=== PATIENT | female | born 1940 | race Caucasian/White ===

== ENCOUNTER 2017-08-10 12:08 | Inpatient (IN) | payer MEDICARE ==
[~2017-08-10] VITALS: Ht 152.4 cm; Wt 68.9 kg
[~2017-08-10 12:08] MED LIST: ACCUPRIL10 MG PO; ADULT LOW DOSE81 MG PO; LOPRESSOR25 MG PO; NICODERM CQ1 EAC1 TOP; OMEPRAZOLE20 MG PO; PRAVACHOL40 MG PO; ZYLOPRIM300 MG PO
[2017-08-10] MEDS ORDERED: ALBUTEROL/IPRATROPIUM 3 ML NEB ONE (15:08)
[2017-08-10 15:20] VITALS: BP 174/93
[2017-08-10 15:25] VITALS: BP 174/93
[2017-08-10 15:39] LABS: BASOPHILS % 0.1 % (0.0-1.0); HEMATOCRIT 37.3 % (34.2-44.1); HEMOGLOBIN 13.4 g/dL (12.0-16.0); LYMPHOCYTES # (AUTO) 0.5 (1.0-3.2); LYMPHOCYTES % 4.9 % (18.0-39.1); MEAN CORPUSCULAR HEMOGLOBIN 33.2 pg (28-32); MEAN CORPUSCULAR HGB CONC 35.9 g/dL (31-35); MEAN CORPUSCULAR VOLUME 92.3 fL (81-99); MONOCYTES # (AUTO) 1.2 (0.2-0.8); MONOCYTES % 12.7 % (4.4-11.3); NEUTROPHILS # (AUTO) 7.9 (2.1-6.9); PLATELET COUNT 298 x10e3/uL (140-360); RED BLOOD COUNT 4.04 x10e6/uL (3.6-5.1); RED CELL DISTRIBUTION WIDTH 11.6 % (11.7-14.4)
[2017-08-10 15:56] LABS: ALANINE AMINOTRANSFERASE 30 IU/L (0-55); ALBUMIN/GLOBULIN RATIO 0.7 (0.8-2.0); ALKALINE PHOSPHATASE 117 IU/L (40-150); ANION GAP 16.1 mmol/L (8-16); BLOOD UREA NITROGEN 7 mg/dL (7-26); BUN/CREATININE RATIO 10 (6-25); CALCIUM 10.2 mg/dL (8.4-10.2); CARBON DIOXIDE 24 mmol/L (22-29); CHLORIDE 87 mmol/L (98-107); CREATININE, SERUM 0.69 mg/dL (0.57-1.11); EST GLOMERULAR FILTRATION RATE > 60 ML/MIN (60-); GLUCOSE 123 mg/dL (74-118); POTASSIUM 4.1 mmol/L (3.5-5.1); SODIUM 123 mmol/L (136-145)
[2017-08-10] MEDS ORDERED: METOPROLOL TART50 MG PO (16:21)
[2017-08-10] MEDS ORDERED: CALTRATE-600 W1 EACH (16:21)
[2017-08-10] MEDS ORDERED: VITAMIN B-121000 MCG PO (16:21)
[2017-08-10] MEDS ORDERED: FISH OIL 1,0001 EAC2 (16:21)
[2017-08-10] MEDS ORDERED: MULTI-VITAMIN1 EACH (16:21)
[2017-08-10 17:01] LABS: BAND NEUTROPHILS % (MANUAL) 1 %; LYMPHOCYTES % (MANUAL) 2 % (19-48); MONOCYTES % (MANUAL) 12 % (3.4-9.0); NEUTROPHILS % (MANUAL) 83 % (40-74); PLATELET ESTIMATE ADEQUATE; PLATELET MORPHOLOGY COMMENT NORMAL; RBC MORPHOLOGY COMMENT NORMAL; TOXIC GRANULATION SLIGHT
--- NOTE | 2017-08-10 17:12 | Diagnostic Imaging Report ---
PROCEDURE: Frontal and lateral views of the chest. COMPARISON: Patients [facility], DX, CHEST SINGLE (PORTABLE), 12/31/2012, 9:32. INDICATIONS: PNEUMONIA/HYPOXIA FINDINGS: Lines/tubes: None. Lungs: The lungs are mildly hyperinflated. Diffuse coarsening of the pulmonary interstitium particularly in the lower lobes. Reticulonodular densities are predominantly in the lower lobes, right greater than left may reflect bronchopneumonia. Bilateral perihilar compartment with secondary mild prominence of the right hilum during Pleura: There is no pleural effusion or pneumothorax. Heart and mediastinum: The heart and the mediastinum are normal. Ossifications of the aortic arch. Bones: No acute bony abnormality. IMPRESSION: 1. Findings suggestive of bilateral bronchopneumonia. Recommend followup chest x-ray in 6 weeks after treatment to document resolution. Daniel Black M.D. Dictated by: Daniel Black M.D. on 08/10/2017 at 17:16 Electronically approved by: Daniel Black M.D. on 08/10/2017 at 17:16
[2017-08-10] MEDS: AZITHROMYCIN 500MG/NS 250 ML 250 ML IV SCH (18:13)
[2017-08-10] MEDS: CEFTRIAXONE SOD 1 GM VIAL IV SCH (18:13)
--- NOTE | 2017-08-10 18:48 | History and Physical ---
The patient comes in with shortness of breath and also breathing difficulties. HISTORY OF PRESENT ILLNESS: Ms. Erick Parkinson is a 76-year-old lady with a history of hypertension who was in her usual state of health until about 4 days prior to admission when the patient started to have cough and congestion. She did not do much about it. She did take [id number] medications, but did not help this morning. The patient was feeling short of breath and took her to the clinic where she was found to have hypoxia of 92% on room air, very short of breath, and was found to have bilateral rhonchi, suspected pneumonia and sent to the hospital for admission for pneumonia, hypoxia. The patient's chest x-ray was done in the hospital and confirmed pneumonia. The patient is admitted for the same. PAST MEDICAL HISTORY: History of hypertension, history of vitamin D deficiency, vitamin B12 deficiency and history of coronary artery disease. HOME MEDICATIONS: Aspirin 81 mg, 1000 mg daily, metoprolol tartrate 50 mg daily, 10 mg nightly. PAST SURGICAL HISTORY: Hysterectomy. SOCIAL HISTORY: No ETOH, no IV drug abuse. REVIEW OF SYSTEMS: No nausea, vomiting, diarrhea, no constipation, no rectal bleeding, hematochezia, no hematemesis. Positive for shortness of breath on rest and on exertion. PHYSICAL EXAMINATION GENERAL: The patient is alert and oriented x3. VITAL SIGNS: Temperature 95.9, pulse 90, respirations 20, pulse oximetry 100%, O2 at 2 liters. HEENT: Normocephalic, atraumatic. Pupils react to light and accommodation. CVS: S1 and S2 normal. Regular rate and rhythm. LUNGS: Rhonchi bilaterally. ABDOMEN: Nontender, nondistended. EXTREMITIES: Trace edema. IMAGING: As mentioned above, did show chest with bilateral bronchial pneumonia. LABORATORY DATA: White count 9.4, neutrophil count ____ 81. Platelet count 298,000. Chemistries: Showed sodium 123, potassium 4.1, carbon dioxide of 24, anion gap of 16.1. ASSESSMENT: 1. Bronchopneumonia. 2. Hyponatremia. 3. Dehydration. 4. History of hypertension. 5. Hypoxia. PLAN: Give her sodium chloride 70 mL gently. Increase her sodium for hyponatremia, and also give her IV Rocephin and Zithromax. The patient is going to be on Albuterol and Atrovent. Treatment q.6 h. and also put her on Lovenox for DVT prophylaxis. She is on O2 at 2 liters for hypoxia. Further recommendations depending on hospital course. Will continue monitoring her numbers and also her sodium as we go along. Job#: [id number] GH
[2017-08-10] MEDS: SODIUM CHLORIDE 0.9% 1000ML 1,000 ML IV SCH (18:55)
[2017-08-10] MEDS: CLONIDINE HCL 0.1 MG TAB PO PRN (18:58)
[2017-08-10] MEDS: ALBUTEROL/IPRATROPIUM 3 ML NEB NEB SCH (19:15)
[2017-08-10 20:00] VITALS: BP 175/96
[2017-08-10] MEDS ORDERED: QUINAPRIL HCL 10 MG TAB PO SCH ×2 (21:00)
[2017-08-10] MEDS: QUINAPRIL HCL 20 MG TAB PO SCH (22:04)
[2017-08-10] MEDS: ASPIRIN 81 MG ENTERIC COATED PO SCH (22:04)
[2017-08-11] VITALS (7 sets, daily range): BP systolic 123–166; BP diastolic 72–76
[2017-08-11] MEDS: ALBUTEROL/IPRATROPIUM 3 ML NEB NEB SCH ×4 (01:00→18:45)
[2017-08-11] MEDS: CLONIDINE HCL 0.1 MG TAB PO PRN (01:27)
[2017-08-11] MEDS: CEFTRIAXONE SOD 1 GM VIAL IV SCH ×2 (05:36→16:12)
[2017-08-11 06:16] LABS: BASOPHILS # (AUTO) 0.1 (0.0-0.1); BASOPHILS % 0.8 % (0.0-1.0); EOSINOPHILS % 0.2 % (0.0-6.0); HEMATOCRIT 30.3 % (34.2-44.1); HEMOGLOBIN 10.6 g/dL (12.0-16.0); LYMPHOCYTES # (AUTO) 0.5 (1.0-3.2); LYMPHOCYTES % 5.2 % (18.0-39.1); MEAN CORPUSCULAR HEMOGLOBIN 33.1 pg (28-32); MEAN CORPUSCULAR VOLUME 94.7 fL (81-99); MONOCYTES # (AUTO) 1.1 (0.2-0.8); NEUTROPHILS # (AUTO) 7.4 (2.1-6.9); NEUTROPHILS % 80.7 % (38.7-80.0); PLATELET COUNT 265 x10e3/uL (140-360); RED CELL DISTRIBUTION WIDTH 11.7 % (11.7-14.4)
[2017-08-11 06:43] LABS: ANION GAP 14.8 mmol/L (8-16); BLOOD UREA NITROGEN 7 mg/dL (7-26); BUN/CREATININE RATIO 11 (6-25); CALCIUM 9.1 mg/dL (8.4-10.2); CARBON DIOXIDE 23 mmol/L (22-29); CHLORIDE 88 mmol/L (98-107); CREATININE, SERUM 0.63 mg/dL (0.57-1.11); EST GLOMERULAR FILTRATION RATE > 60 ML/MIN (60-); GLUCOSE 101 mg/dL (74-118); POTASSIUM 3.8 mmol/L (3.5-5.1); SODIUM 122 mmol/L (136-145)
[2017-08-11 07:34] LABS: BAND NEUTROPHILS % (MANUAL) 7 %; LYMPHOCYTES % (MANUAL) 10 % (19-48); METAMYELOCYTES % (MANUAL) 1 % (0-0); MONOCYTES % (MANUAL) 11 % (3.4-9.0); MYELOCYTES % (MANUAL) 1 % (0-0); NEUTROPHILS % (MANUAL) 65 % (40-74)
[2017-08-11 07:35] LABS: ANISOCYTOSIS SLIGHT; HYPOCHROMASIA SLIGHT; PLATELET ESTIMATE ADEQUATE; PLATELET MORPHOLOGY COMMENT FEW LARGE; POIKILOCYTOSIS SLIGHT; RBC MORPHOLOGY COMMENT NORMAL
[2017-08-11] MEDS: MULTIVITAMINS/MINERALS TAB PO SCH (09:21)
[2017-08-11] MEDS: CYANOCOBALAMIN 1,000 MCG TAB PO SCH (09:21)
[2017-08-11] MEDS: METOPROLOL TARTRATE 50 MG TAB PO SCH (09:28)
[2017-08-11] MEDS: SODIUM CHLORIDE 1 GM TAB PO SCH ×2 (11:57→21:00)
[2017-08-11 12:05] LABS: THYROID STIMULATING HORMONE 0.72 uIU/mL (0.350-4.940)
--- NOTE | 2017-08-11 14:52 | Consultation ---
DATE OF CONSULTATION: August 11, 2017 HISTORY OF PRESENT ILLNESS: This is a pleasant 77-year-old female with prior history of skin cancer, coronary artery disease, hypertension, vitamin D deficiency, presented with a few days' history of cough, greenish colored phlegm production. She has been diagnosed with pneumonia. Renal consult for hyponatremia. Serum sodium 122, potassium 3.8, creatinine 0.6. White count 9.1, hemoglobin 10.6. She is awake, alert. She is celebrating her birthday as well as anniversary today. by bedside. She feels weak, coughing. Has not slept much. Other than that denies nausea, vomiting, or diarrhea. Denies any prior history of any renal insufficiency or kidney stone disease. ALLERGIES: CODEINE, SULFA. SOCIAL HISTORY: Does not smoke or drink. FAMILY HISTORY: Significant for hypertension. PHYSICAL EXAMINATION GENERAL: Awake, alert, sitting up in no apparent distress. VITAL SIGNS: Blood pressure 136/76, pulse rate 76, afebrile. HEAD AND NECK: Cornea clear. Oral mucosa dry. LUNGS: Harsh vesicular breath sounds. Some bronchial breath sounds noted, right and left lower zone. No significant rales. HEART: S1, S2 audible. ABDOMEN: Soft, nontender. LOWER EXTREMITIES: Show no edema. IMPRESSION AND PLAN 1. Most likely syndrome of inappropriate antidiuretic hormone secretion secondary to pneumonia. We will obtain thyroid function tests, serum uric acid. Place the patient on p.o. fluid restriction. Start salt tablets, regular salt diet. Continue with IV normal saline. Continue to monitor patient's serum sodium with you. As far as chest x-ray is concerned, she definitely has bilateral infiltrates suggestive of pneumonia in both lower lobes. 2. Antibiotic per primary care physician. Job#: [id number] SEAN
[2017-08-11] MEDS: AZITHROMYCIN 500MG/NS 250 ML 250 ML IV SCH (16:11)
[2017-08-11] MEDS: SODIUM CHLORIDE 0.9% 1000ML 1,000 ML IV SCH ×2 (16:12→22:14)
[2017-08-11] MEDS: ENOXAPARIN SOD INJ 40 MG/0.4 ML SYR SC SCH (17:00)
[2017-08-11] MEDS: QUINAPRIL HCL 20 MG TAB PO SCH (21:00)
[2017-08-11] MEDS: ASPIRIN 81 MG ENTERIC COATED PO SCH (21:00)
[2017-08-12] VITALS (7 sets, daily range): BP systolic 151–191; BP diastolic 67–88
[2017-08-12] MEDS: ALBUTEROL/IPRATROPIUM 3 ML NEB NEB SCH ×5 (00:30→23:06)
[2017-08-12] MEDS: CEFTRIAXONE SOD 1 GM VIAL IV SCH ×2 (05:07→17:07)
[2017-08-12 06:08] LABS: BASOPHILS # (AUTO) 0.1 (0.0-0.1); BASOPHILS % 0.6 % (0.0-1.0); EOSINOPHILS % 0.2 % (0.0-6.0); HEMOGLOBIN 10.9 g/dL (12.0-16.0); LYMPHOCYTES # (AUTO) 0.4 (1.0-3.2); LYMPHOCYTES % 3.8 % (18.0-39.1); MEAN CORPUSCULAR HEMOGLOBIN 33.2 pg (28-32); MEAN CORPUSCULAR HGB CONC 34.1 g/dL (31-35); MEAN CORPUSCULAR VOLUME 97.6 fL (81-99); MONOCYTES % 9.5 % (4.4-11.3); NEUTROPHILS # (AUTO) 9.1 (2.1-6.9); NEUTROPHILS % 83.3 % (38.7-80.0); PLATELET COUNT 274 x10e3/uL (140-360); RED BLOOD COUNT 3.28 x10e6/uL (3.6-5.1)
[2017-08-12] MEDS ORDERED: CLONIDINE HCL 0.1 MG TAB PO PRN (07:00)
[2017-08-12 07:09] LABS: ALANINE AMINOTRANSFERASE 64 IU/L (0-55); ALBUMIN 2.4 g/dL (3.5-5.0); ALBUMIN/GLOBULIN RATIO 0.7 (0.8-2.0); ALKALINE PHOSPHATASE 162 IU/L (40-150); ANION GAP 15.4 mmol/L (8-16); BLOOD UREA NITROGEN 5 mg/dL (7-26); BUN/CREATININE RATIO 8 (6-25); CALCIUM 9.3 mg/dL (8.4-10.2); CARBON DIOXIDE 23 mmol/L (22-29); CHLORIDE 100 mmol/L (98-107); CREATININE, SERUM 0.64 mg/dL (0.57-1.11); EST GLOMERULAR FILTRATION RATE > 60 ML/MIN (60-); GLUCOSE 102 mg/dL (74-118); POTASSIUM 4.4 mmol/L (3.5-5.1); SODIUM 134 mmol/L (136-145)
[2017-08-12 08:15] LABS: BAND NEUTROPHILS % (MANUAL) 8 %; LYMPHOCYTES % (MANUAL) 5 % (19-48); MONOCYTES % (MANUAL) 8 % (3.4-9.0); NEUTROPHILS % (MANUAL) 78 % (40-74)
[2017-08-12 08:16] LABS: HYPOCHROMASIA SLIGHT; MICROCYTOSIS SLIGHT; PLATELET ESTIMATE ADEQUATE; RBC MORPHOLOGY COMMENT NORMAL
[2017-08-12 08:17] LABS: PLATELET MORPHOLOGY COMMENT NORMAL
[2017-08-12] MEDS: SODIUM CHLORIDE 1 GM TAB PO SCH (09:09)
[2017-08-12] MEDS: CYANOCOBALAMIN 1,000 MCG TAB PO SCH (09:09)
[2017-08-12] MEDS: METOPROLOL TARTRATE 50 MG TAB PO SCH (09:09)
[2017-08-12] MEDS: MULTIVITAMINS/MINERALS TAB PO SCH (09:09)
--- NOTE | 2017-08-12 09:20 | Diagnostic Imaging Report ---
PROCEDURE: X-RAY CHEST, TWO VIEWS COMPARISON: [facility], DX, CHEST 2 VIEWS, 08/10/2017, 16:19. INDICATIONS: PNEUMONIA, SHORTNESS OF BREATH FINDINGS: LUNGS: Slight improvement in the bilateral basilar airspace opacities. PLEURA: Small bilateral pleural effusions. HEART \T\ MEDIASTINUM: The heart is within normal size-limits. Calcification within the aorta. BONES \T\ SOFT TISSUES: No acute findings. CONCLUSION: Slight improvement in the bilateral pneumonia. Marco Moreno D.O. Dictated by: Marco Moreno D.O. on 08/12/2017 at 9:23 Electronically approved by: Marco Moreno D.O. on 08/12/2017 at 9:23
[2017-08-12] MEDS ORDERED: ALBUTEROL/IPRATROPIUM 3 ML NEB NEB SCH (14:00)
[2017-08-12] MEDS: ENOXAPARIN SOD INJ 40 MG/0.4 ML SYR SC SCH ×2 (17:00→17:07)
[2017-08-12] MEDS: AZITHROMYCIN 500MG/NS 250 ML 250 ML IV SCH (17:07)
[2017-08-12] MEDS ORDERED: TRAMADOL HCL 50 MG TAB PO PRN (20:30)
[2017-08-12] MEDS: QUINAPRIL HCL 20 MG TAB PO SCH (20:34)
[2017-08-12] MEDS: METHYLPREDNISOLONE SOD SUCC 40 MG/ML VIAL IV SCH (20:34)
[2017-08-12] MEDS: ASPIRIN 81 MG ENTERIC COATED PO SCH (20:34)
[2017-08-12] MEDS ORDERED: IBUPROFEN 400 MG TAB PO PRN (20:45)
[2017-08-13] VITALS (7 sets, daily range): BP systolic 146–168; BP diastolic 65–82
[2017-08-13] MEDS: ALBUTEROL/IPRATROPIUM 3 ML NEB NEB SCH ×6 (02:20→23:10)
[2017-08-13] MEDS: CEFTRIAXONE SOD 1 GM VIAL IV SCH ×2 (05:24→17:31)
[2017-08-13 06:59] LABS: BASOPHILS % 0.3 % (0.0-1.0); HEMATOCRIT 30.2 % (34.2-44.1); HEMOGLOBIN 10.4 g/dL (12.0-16.0); LYMPHOCYTES # (AUTO) 0.4 (1.0-3.2); LYMPHOCYTES % 4.5 % (18.0-39.1); MEAN CORPUSCULAR HEMOGLOBIN 33.1 pg (28-32); MEAN CORPUSCULAR HGB CONC 34.4 g/dL (31-35); MEAN CORPUSCULAR VOLUME 96.2 fL (81-99); MONOCYTES # (AUTO) 0.3 (0.2-0.8); MONOCYTES % 3.1 % (4.4-11.3); NEUTROPHILS # (AUTO) 7.7 (2.1-6.9); NEUTROPHILS % 86.5 % (38.7-80.0); PLATELET COUNT 257 x10e3/uL (140-360); RED BLOOD COUNT 3.14 x10e6/uL (3.6-5.1); RED CELL DISTRIBUTION WIDTH 12.5 % (11.7-14.4)
[2017-08-13 07:23] LABS: ANION GAP 12.4 mmol/L (8-16); BLOOD UREA NITROGEN 5 mg/dL (7-26); BUN/CREATININE RATIO 8 (6-25); CALCIUM 9.2 mg/dL (8.4-10.2); CARBON DIOXIDE 25 mmol/L (22-29); CHLORIDE 104 mmol/L (98-107); CREATININE, SERUM 0.65 mg/dL (0.57-1.11); EST GLOMERULAR FILTRATION RATE > 60 ML/MIN (60-); GLUCOSE 151 mg/dL (74-118); POTASSIUM 4.4 mmol/L (3.5-5.1); SODIUM 137 mmol/L (136-145)
[2017-08-13] MEDS ORDERED: BISACODYL 5 MG TAB EC PO PRN (07:30)
[2017-08-13 08:02] LABS: BAND NEUTROPHILS % (MANUAL) 4 %; LYMPHOCYTES % (MANUAL) 6 % (19-48); MONOCYTES % (MANUAL) 5 % (3.4-9.0); NEUTROPHILS % (MANUAL) 82 % (40-74)
[2017-08-13 08:03] LABS: HYPOCHROMASIA SLIGHT; PLATELET ESTIMATE ADEQUATE; PLATELET MORPHOLOGY COMMENT FEW LARGE; RBC MORPHOLOGY COMMENT NORMAL
[2017-08-13] MEDS: METHYLPREDNISOLONE SOD SUCC 40 MG/ML VIAL IV SCH ×2 (09:26→21:00)
[2017-08-13] MEDS: SODIUM CHLORIDE 1 GM TAB PO SCH (09:27)
[2017-08-13] MEDS: CYANOCOBALAMIN 1,000 MCG TAB PO SCH (09:27)
[2017-08-13] MEDS: METOPROLOL TARTRATE 50 MG TAB PO SCH (09:27)
[2017-08-13] MEDS: MULTIVITAMINS/MINERALS TAB PO SCH (09:27)
[2017-08-13] MEDS: SODIUM CHLORIDE 0.9% 1000ML 1,000 ML IV SCH (10:30)
[2017-08-13] MEDS: AZITHROMYCIN 500MG/NS 250 ML 250 ML IV SCH (17:31)
[2017-08-13] MEDS: ENOXAPARIN SOD INJ 40 MG/0.4 ML SYR SC SCH (17:31)
[2017-08-13] MEDS: ASPIRIN 81 MG ENTERIC COATED PO SCH (21:00)
[2017-08-13] MEDS: QUINAPRIL HCL 20 MG TAB PO SCH (21:42)
[2017-08-14] VITALS: BP 168/76
[2017-08-14] MEDS: ALBUTEROL/IPRATROPIUM 3 ML NEB NEB SCH ×6 (02:45→23:02)
[2017-08-14 04:00] VITALS: BP 172/72
[2017-08-14] MEDS: CEFTRIAXONE SOD 1 GM VIAL IV SCH ×2 (05:00→16:40)
[2017-08-14] MEDS: SODIUM CHLORIDE 0.9% 1000ML 1,000 ML IV SCH (05:33)
[2017-08-14 08:15] VITALS: BP 161/72
[2017-08-14] MEDS: METOPROLOL TARTRATE 50 MG TAB PO SCH (08:30)
[2017-08-14] MEDS: METHYLPREDNISOLONE SOD SUCC 40 MG/ML VIAL IV SCH ×2 (08:30→20:48)
[2017-08-14] MEDS: MULTIVITAMINS/MINERALS TAB PO SCH (08:30)
[2017-08-14] MEDS: SODIUM CHLORIDE 1 GM TAB PO SCH (08:30)
[2017-08-14] MEDS: CYANOCOBALAMIN 1,000 MCG TAB PO SCH (08:30)
[2017-08-14 12:03] VITALS: BP 178/79
[2017-08-14] MEDS: AZITHROMYCIN 500MG/NS 250 ML 250 ML IV SCH (17:00)
[2017-08-14] MEDS: ENOXAPARIN SOD INJ 40 MG/0.4 ML SYR SC SCH (17:00)
[2017-08-14] MEDS: FUROSEMIDE INJ 10 MG/ML 4 ML VIAL IV SCH (18:21)
[2017-08-14 20:00] VITALS: BP 177/81
[2017-08-14] MEDS: ASPIRIN 81 MG ENTERIC COATED PO SCH (20:49)
[2017-08-14] MEDS: QUINAPRIL HCL 20 MG TAB PO SCH (20:49)
[2017-08-15] VITALS (8 sets, daily range): BP systolic 158–179; BP diastolic 74–82
[2017-08-15] MEDS: ALBUTEROL/IPRATROPIUM 3 ML NEB NEB SCH ×2 (03:10→07:00)
[2017-08-15] MEDS: CEFTRIAXONE SOD 1 GM VIAL IV SCH ×2 (05:00→16:45)
[2017-08-15 06:49] LABS: BASOPHILS # (AUTO) 0.1 (0.0-0.1); BASOPHILS % 0.8 % (0.0-1.0); HEMATOCRIT 34.1 % (34.2-44.1); HEMOGLOBIN 11.6 g/dL (12.0-16.0); LYMPHOCYTES # (AUTO) 0.8 (1.0-3.2); LYMPHOCYTES % 5.8 % (18.0-39.1); MEAN CORPUSCULAR HEMOGLOBIN 32.9 pg (28-32); MEAN CORPUSCULAR VOLUME 96.6 fL (81-99); MONOCYTES # (AUTO) 0.7 (0.2-0.8); NEUTROPHILS # (AUTO) 10.8 (2.1-6.9); NEUTROPHILS % 81.1 % (38.7-80.0); PLATELET COUNT 372 x10e3/uL (140-360); RED BLOOD COUNT 3.53 x10e6/uL (3.6-5.1); RED CELL DISTRIBUTION WIDTH 12.9 % (11.7-14.4)
[2017-08-15 07:06] LABS: ANION GAP 15.8 mmol/L (8-16); BLOOD UREA NITROGEN 12 mg/dL (7-26); BUN/CREATININE RATIO 16 (6-25); CALCIUM 9.3 mg/dL (8.4-10.2); CARBON DIOXIDE 25 mmol/L (22-29); CHLORIDE 101 mmol/L (98-107); CREATININE, SERUM 0.76 mg/dL (0.57-1.11); EST GLOMERULAR FILTRATION RATE > 60 ML/MIN (60-); GLUCOSE 125 mg/dL (74-118); POTASSIUM 3.8 mmol/L (3.5-5.1); SODIUM 138 mmol/L (136-145)
[2017-08-15] MEDS ORDERED: ALBUTEROL/IPRATROPIUM 3 ML NEB NEB PRN (07:45)
[2017-08-15] MEDS: FUROSEMIDE INJ 10 MG/ML 4 ML VIAL IV SCH ×2 (08:30→21:10)
[2017-08-15] MEDS: MULTIVITAMINS/MINERALS TAB PO SCH (08:30)
[2017-08-15] MEDS: CYANOCOBALAMIN 1,000 MCG TAB PO SCH (08:30)
[2017-08-15] MEDS: METHYLPREDNISOLONE SOD SUCC 40 MG/ML VIAL IV SCH ×2 (08:30→21:10)
[2017-08-15] MEDS: METOPROLOL TARTRATE 50 MG TAB PO SCH (10:27)
[2017-08-15 11:22] LABS: BAND NEUTROPHILS % (MANUAL) 5 %; LYMPHOCYTES % (MANUAL) 10 % (19-48); METAMYELOCYTES % (MANUAL) 2 % (0-0); MONOCYTES % (MANUAL) 7 % (3.4-9.0); MYELOCYTES % (MANUAL) 3 % (0-0); NEUTROPHILS % (MANUAL) 72 % (40-74); PLATELET ESTIMATE ADEQUATE; PLATELET MORPHOLOGY COMMENT NORMAL; RBC MORPHOLOGY COMMENT NORMAL
[2017-08-15] MEDS: AZITHROMYCIN 500MG/NS 250 ML 250 ML IV SCH (17:00)
[2017-08-15] MEDS: ENOXAPARIN SOD INJ 40 MG/0.4 ML SYR SC SCH (17:00)
[2017-08-15] MEDS: ASPIRIN 81 MG ENTERIC COATED PO SCH (21:10)
[2017-08-15] MEDS: QUINAPRIL HCL 20 MG TAB PO SCH (21:10)
[2017-08-15] MEDS ORDERED: ATORVASTATIN 20 MG TAB PO SCH (22:30)
[2017-08-16] VITALS: BP 163/74
[2017-08-16 04:00] VITALS: BP 141/65
[2017-08-16] MEDS: CEFTRIAXONE SOD 1 GM VIAL IV SCH (05:11)
[2017-08-16] MEDS: MULTIVITAMINS/MINERALS TAB PO SCH (08:00)
[2017-08-16] MEDS: ASPIRIN 81 MG ENTERIC COATED PO SCH (08:00)
[2017-08-16] MEDS: METOPROLOL TARTRATE 50 MG TAB PO SCH (08:00)
[2017-08-16] MEDS: FUROSEMIDE INJ 10 MG/ML 4 ML VIAL IV SCH (08:00)
[2017-08-16] MEDS: CYANOCOBALAMIN 1,000 MCG TAB PO SCH (08:00)
[2017-08-16 08:11] VITALS: BP 166/73
[2017-08-16] MEDS ORDERED: LEVAQUIN500 MG PO (08:12)
[2017-08-16] MEDS ORDERED: LASIX20 MG PO (08:13)
[2017-08-16] MEDS ORDERED: ATORVASTATIN 20 MG TAB PO SCH (21:00)
== END 2017-08-16 08:28 | disposition home or self-care (01) | DRG 871 ==
LOC: MED/SURG3 14:23
PROVIDERS: ADMIT Family Medicine; ATTEND Family Medicine
DX: A41.9 Sepsis, unspecified organism (principal); J18.0 Bronchopneumonia, unspecified organism; E87.1 Hypo-osmolality and hyponatremia; E22.2 Syndrome of inappropriate secretion of antidiuretic hormone; I25.10 Atherosclerotic heart disease of native coronary artery without angina pectoris; R09.02 Hypoxemia; I10 Essential (primary) hypertension; E55.9 Vitamin D deficiency, unspecified; E86.0 Dehydration
CPT/HCPCS: 36415; 71046; 80048; 80053; 83880; 84300; 84436; 84443; 84479; 84550; 85025; 87040; 87070; 87205; 93306; 94640; 96361; 96375; 96376; J0456; J0696; J1650; J1940; J2920; J7030

== ENCOUNTER 2018-12-22 07:35 | Inpatient (IN) | payer MEDICARE ==
[~2018-12-22] VITALS: Ht 157.5 cm; Wt 84.1 kg
[~2018-12-22 07:35] MED LIST changes: +CALTRATE-600 W1 EACH; +FISH OIL 1,0001 EAC2; +LASIX20 MG PO; +LEVAQUIN500 MG PO; +METOPROLOL TART50 MG PO; +MULTI-VITAMIN1 EACH; +VITAMIN B-121000 MCG PO
--- OUTSIDE RECORDS SUMMARY | 2018-12-22 07:38 | XMS REPORT ---
Author Author [facility] Address Unknown Phone Unavailable Care Team Providers Care Operator Catalyst Concentration Name Role Phone Lorri MURPHY Unavailable Unavailable Problems This patient has no known problems. Allergies, Adverse Reactions, Alerts This patient has no known allergies or adverse reactions. Medications This patient has no known medications. Results Test Description Test Time Test Comments Text Results Atomic Results Result Comments SCR MAMM BILATERAL ALEX CAD DIGITAL 2018-10-11 08:10:29 - SCR MAMM BILATERAL ALEX CAD DIGITALBILATERAL DIGITAL SCREENING MAMMOGRAM 3D/2D WITH CAD: 09/22/2018CLINICAL: Asymptomatic. Digital breast tomosynthesis was performed in addition to routine CC and MLO views. Current mammographic images were evaluated by either a Intimate [employer] 2 [employer]ception M-Vu or a [employer] ImageChecker CAD (computer aided detection system). Comparison is made to exams dated 09/14/2017 mammogram, 08/06 mammogram, 07/10/2015 mammogram, 05/30/2014 mammogram, 05/18/2013 mammogram, and 04/07/2012 mammogram - [facility]. There are scattered fibroglandular tissues in both breasts. There is a biopsy clip in the left breast. No suspicious mass, architectural distortion, malignant type calcification, or lymph node abnormality detected. Breast architecture is stable compared to prior exams.IMPRESSION: NEGATIVEThere is no mammographic evidence of malignancy. Resume annual screening mammography in one year. Megan russell/cristiano:10/11/2018 08:10:29 Pharmacy Scheduler: [place], [facility]-FWletter sent: BIRADS 1-2 Normal Mammogram BI-RADS: 1 Negative CHEST 2 VIEWS 2017-08-12 09:23:[address] [address] Patient Name: ABHAY ANAND MR #: [id number] : 1940 Age/Sex: 77/F Req #: [id number] Adm Physician: NATHALIE MURPHY MD Ordered by: NATHALIE MURPHY MD Report #: [id number] Location: MED/SURG3 Room/Bed: [facility] Procedure: [id number] DX/CHEST 2 VIEWS Exam Date: 08/12/17 Exam Time: 0800 REPORT STATUS: Signed PROCEDURE: X-RAY CHEST, TWO VIEWS COMPARISON: [facility], DX, CHEST 2 VIEWS, 08/10/2017, 16:19. INDICATIONS: PNEUMONIA, SHORTNESS OF BREATH FINDINGS: LUNGS: Slight improvement in the bilateral basilar airspace opacities. PLEURA: Small bilateral pleural effusions. HEART T MEDIASTINUM: The heart is within normal size-limits. Calcification within the aorta. BONES T SOFT TISSUES: No acute findings. CONCLUSION: Slight improvement in the bilateral pneumonia. Ricardo Moreno D.O. Dictated by: Ricardo Moreno D.O. on 08/12/2017 at 9:23 Electronically approved by: Ricardo Moreno D.O. on 08/12/2017 at 9:23 Dictated By: RICARDO MORENO DO 2 Transcribed By: WILIAN on 08/12/17922 COPY TO: NATHALIE MURPHY MD CHEST 2 VIEWS 2017-08-10 17:16:00 [place] [address] Patient Name: ABHAY ANAND MR #: [id number] : 1940 Age/Sex: 76/F Req #: [id number] Adm Physician: NATHALIE MURPHY MD Ordered by: NATHALIE MURPHY MD Report #: [id number] Location: MED/SURG3 Room/Bed: [facility] Procedure: [id number] DX/CHEST 2 VIEWS Exam Date: 08/10/17 Exam Time: 1620 REPORT STATUS: Signed PROCEDURE: Frontal and lateral views of the chest. COMPARISON: Patients [facility], DX, CHEST SINGLE (PORTABLE), 12/31/2012, 9:32. INDICATIONS: PNEUMONIA/HYPOXIA FINDINGS: Lines/tubes: None. Lungs: The lungs are mildly hyperinflated. Diffuse coarsening of the pulmonary interstitium particularly in the lower lobes. Reticulonodular densities are predominantly in the lower lobes, right greater than left may reflect bronchopneumonia. Bilateral perihilar compartment with secondary mild prominence of the right hilum during Pleura: There is no pleural effusion or pneumothorax. Heart and mediastinum: The heart and the mediastinum are normal. Ossifications of the aortic arch. Bones: No acute bony abnormality. IMPRESSION: 1. Findings suggestive of bilateral bronchopneumonia. Recommend followup chest x-ray in 6 weeks after treatment to document resolution. Daniel Sheehan M.D. Dictated by: Daniel Sheehan M.D. on 08/10/2017 at 17:16 Electronically approved by: Daniel Sheehan M.D. on 08/10/2017 at 17:16 Dictated By: FREIDA SHEHEAN MD, MD 15 Transcribed By: WILIAN on 08/10/171715 COPY TO: NATHALIE MURPHY MD
[2018-12-22] MEDS ORDERED: ONDANSETRON HCL INJ 2MG/ML 2ML 2 MG/ML VIAL IV STA (07:54)
[2018-12-22] MEDS ORDERED: HYDROCODONE/APAP 7.5MG-325MG 1 EA TAB PO ONE (08:00)
[2018-12-22] MEDS ORDERED: NITROGLYCERIN 2% OINT 1 GM PKT TOP ONE (08:00)
[2018-12-22 08:13] LABS: BASOPHILS % 0.2 % (0.0-1.0); EOSINOPHILS % 0.4 % (0.0-6.0); HEMATOCRIT 41.6 % (34.2-44.1); HEMOGLOBIN 14.4 g/dL (12.0-16.0); MEAN CORPUSCULAR HEMOGLOBIN 32.9 pg (28-32); MEAN CORPUSCULAR HGB CONC 34.6 g/dL (31-35); MONOCYTES # (AUTO) 0.7 (0.2-0.8); MONOCYTES % 7.7 % (4.4-11.3); NEUTROPHILS # (AUTO) 7.4 (2.1-6.9); NEUTROPHILS % 80.3 % (38.7-80.0); PLATELET COUNT 270 x10e3/uL (140-360); RED BLOOD COUNT 4.38 x10e6/uL (3.6-5.1); RED CELL DISTRIBUTION WIDTH 12.5 % (11.7-14.4)
[2018-12-22 08:32] LABS: INR 0.84
[2018-12-22 08:33] LABS: PARTIAL THROMBOPLASTIN TIME 29.1 seconds (23.8-35.5)
[2018-12-22 08:44] LABS: ALANINE AMINOTRANSFERASE 21 IU/L (0-55); ALBUMIN 4.2 g/dL (3.5-5.0); ALBUMIN/GLOBULIN RATIO 1.6 (0.8-2.0); ALKALINE PHOSPHATASE 87 IU/L (40-150); BLOOD UREA NITROGEN 9 mg/dL (7-26); BUN/CREATININE RATIO 12 (6-25); CALCIUM 9.5 mg/dL (8.4-10.2); CARBON DIOXIDE 21 mmol/L (22-29); CHLORIDE 94 mmol/L (98-107); CREATINE KINASE 191 IU/L (29-168); CREATININE, SERUM 0.75 mg/dL (0.57-1.11); EST GLOMERULAR FILTRATION RATE > 60 ML/MIN (60-); GLUCOSE 104 mg/dL (74-118); MAGNESIUM 1.6 MG/DL (1.3-2.1); SODIUM 126 mmol/L (136-145)
--- NOTE | 2018-12-22 08:50 | Diagnostic Imaging Report ---
EXAMINATION: CHEST SINGLE (PORTABLE) INDICATION: Shortness of breath COMPARISON: None FINDINGS: LINES/TUBES:EKG leads overlie the chest. LUNGS:The lungs are well-inflated. No focal consolidation or pulmonary edema. PLEURA:No pleural effusion or pneumothorax. MEDIASTINUM:The cardiomediastinal silhouette appears normal in size and shape. Atherosclerotic calcifications of the thoracic aorta. BONES/SOFT TISSUES:No acute osseous injury. ABDOMEN:No free air under the diaphragm. IMPRESSION: No focal pneumonia or pulmonary edema. Signed by: Tavo Romo MD on 12/22/2018 8:46 AM
[2018-12-22] MEDS ORDERED: DIAZEPAM 5 MG TAB PO ONE ×2 (09:30→13:30)
[2018-12-22] MEDS ORDERED: HYDROCODONE/APAP 10MG-325MG TAB PO PRN (10:30)
[2018-12-22 10:35] LABS: BILIRUBIN,URINE NEGATIVE (NEGATIVE); CLARITY,URINE CLEAR (CLEAR); COLOR,URINE YELLOW (YELLOW); KETONES,URINE NEGATIVE (NEGATIVE); LEUKOCYTE ESTERASE ,URINE TRACE (NEGATIVE); NITRITE,URINE NEGATIVE (NEGATIVE); PROTEIN,URINE DIPSTICK NEGATIVE (NEGATIVE); URINE UROBILINOGEN 0.2 mg/dL (0.2 - 1)
[2018-12-22 11:09] LABS: AMORPHOUS SEDIMENT,URINE FEW (FEW); BACTERIA,URINE MODERATE /HPF; EPITHELIAL CELLS,URINE FEW /LPF; MUCUS,URINE FEW (RARE); RBC,URINE 0-5 /HPF (0-5)
--- NOTE | 2018-12-22 11:45 | NUR ---
received patient from ER, patient has elevated blood pressure of 200/88 rechecked 200/98 manually will notify MD, patient rating pain 10/10 we will medicate with pain medication, c/o nausea will give Zofran 4mg per MAR, patient is alert and oriented, verbalizing needs, oriented to room and use of call light instructed to have nothing by mouth until after CT scan of abdomen. Patient verbalized understanding, oriented to room and use of call light. Belongings and call light with in reach, at bedside will continue to monitor.
[2018-12-22 12:30] VITALS: BP 198/100
[2018-12-22] MEDS: ONDANSETRON HCL INJ 2MG/ML 2ML 2 MG/ML VIAL IV PRN ×2 (12:53→21:46)
[2018-12-22] MEDS: HYDRALAZINE HCL 20 MG/ML VIAL IV PRN (13:46)
[2018-12-22 14:27] LABS: CREATINE KINASE 175 IU/L (29-168)
[2018-12-22 14:46] VITALS: BP 198/100
[2018-12-22] MEDS ORDERED: PROMETHAZINE 12.5MG/ NACL 0.9% 12.5 MG/50 ML BAG IV PRN (15:45)
[2018-12-22] MEDS ORDERED: SODIUM CHLORIDE 0.9% 250ML 250 ML ONE (16:09)
[2018-12-22] MEDS: HYDROMORPHONE 1MG/1ML INJ IV PRN ×2 (16:23→21:44)
[2018-12-22] MEDS: PROMETHAZINE 12.5MG/ NACL 0.9% 50 ML IV PRN ×2 (16:23→21:44)
[2018-12-22 16:26] VITALS: BP 198/100
[2018-12-22 16:31] VITALS: BP 153/77
--- NOTE | 2018-12-22 17:12 | Consultation ---
DATE OF CONSULTATION: Cardiac Consultation REASON FOR CONSULTATION: Lower leg edema, shortness of breath. HISTORY OF PRESENT ILLNESS: A delightful 78-year-old lady, who is known with longstanding history of hypertension and hypercholesterolemia. The patient also known to have back problem. In the past, she had injection twice in her back. Her back problem seems to be flaring up and it is becoming very very severe. She went to see her pain specialist. She was started on methylprednisolone large dose and decreasing it. With that, she started having swelling all over. More notably is severe swelling of the lower extremities. She is unable to move. She is in the bed for some time and she is also having some shortness of breath. No pleuritic chest pain. No cough. No hemoptysis. No respiratory distress. Regardless, her leg swelling is worse and she is having severe pain. She is advised by her physician to go to the emergency room. She came to the emergency room, seen and evaluated her by ER team. Her BNP was normal. Her chest x-ray showed no pulmonary congestion. Her urine showed no proteinuria. Her albumin and her rest of the data were normal. Cardiac consultation is obtained. When I visited with the patient, whom she complained of severe low back pain radiating to her legs, unable to function. The prednisone seems to be helping the pressure on her spine and she is supposed to have injection of long-acting steroids in her back, but "cannot be done" because of marked swelling of the lower extremity and the shortness of breath. The patient denied having any angina. She denied having any cough, any hemoptysis. There is no orthopnea, no paroxysmal nocturnal dyspnea. The swelling is more pronounced of the lower extremities. REVIEW OF SYSTEMS: Extensive, will be summarized for clarity. GENERAL: No fever. No chills. HEENT: Unremarkable. PULMONARY: As per acute illness. CARDIAC: As per acute illness. GI: No hematemesis. No melena. No GERD. No constipation. No diarrhea. : No hematuria. No dysuria. Increased frequency of urination. The patient in fact is incontinence for a long time with this acute back problem. MUSCULOSKELETAL: Back pain with radiculopathy, weakness of lower extremities. SKIN: No skin lesion. No rash. HEMATOLOGY: No easy bruising or bleeding. SOCIAL HISTORY: She is . She is smoker. She is not alcohol drinker. She is retired, commercial real estate sales manager. HOME MEDICATIONS: Include metoprolol 50 mg a day, allopurinol 300 mg a day, Tizanidine, lisinopril 20 mg a day, and hydralazine 50 mg twice a day. ALLERGIES: SULFA AND CODEINE. PAST MEDICAL HISTORY: 1. Hypertension. 2. Hypercholesterolemia. 3. Hysterectomy. 4. History of gout. 5. History of severe back pain, status post injection in the past. 6. Hyponatremia on admission to this institution last year. FAMILY HISTORY: Father at age 56 with throat cancer. Mother at age 88 with CVA complication. She lost her brother due to prostate cancer at age 60. No sisters. Three healthy daughters. PHYSICAL EXAMINATION: GENERAL: A well-built lady, in no acute distress. VITAL SIGNS: Blood pressure 200/80, heart rate of 60, and respiratory rate of 18. HEENT: Pupils are equal and reactive. NECK: No elevation of jugular venous pulsation. No bruit. No thyromegaly. No lymphadenopathy. CHEST: Clear to auscultation and percussion. HEART: PMI 5th left intercostal space. Normal first and second heart sounds. ABDOMEN: Soft with good bowel sounds. No organomegaly. No abdominal bruits. EXTREMITIES: Marked swelling of lower extremities all the way to half thigh. NEUROLOGIC: Able to move her extremities. She is having severe pain by moving her lower extremities. LABORATORY DATA: Sodium of 126, potassium of 4, BUN of 9, creatinine of 0.75, and glucose of 104. BNP of 38. White blood cell count of 9.2, hemoglobin of 14.4, hematocrit 42%, and platelet count of 270,000. EKG showing normal sinus rhythm, left atrial enlargement. Chest x-ray showed no cardiomegaly, no volume overload. IMPRESSION AND PLAN: 1. Severe low back pain with recent large dose of methylprednisolone. 2. Hypertension, uncontrolled exacerbated by steroids use. 3. Hypercholesterolemia. 4. Lower extremity edema, possible secondary to steroids, but extensive deep venous thrombosis needs to be ruled out. Cardiac-landin, I recommend the following. I will check D-dimer on the lab drawn earlier. I will take the liberty to get CT chest and abdomen in fact discussed with the emergency room physician and we are going to do that to rule out PE, which clinically does not seems to be there. An echocardiogram will be helpful to look at left ventricular systolic function as well as to evaluate the right ventricle and be sure the right ventricle is reasonable. A CT chest and abdomen to be done. D-dimer to be done. Control of blood pressure to be done. Case discussed and explained with the patient, her and the emergency room team. MD ROSEANN Leos/MICHELINE /[id number]
--- NOTE | 2018-12-22 18:50 | NUR ---
RECEIVED REPORT FROM PREVIOUS NURSE. CALL LIGHT WITHIN REACH. PATIENT IN BED. Addendum: 12/23/18 at 0757 by Shakila Rocha RN AT BEDSIDE
[2018-12-22] MEDS ORDERED: SODIUM CHLORIDE 0.9% 1000ML 1,000 ML IV SCH (19:30)
[2018-12-22 19:39] LABS: CREATINE KINASE MB 2.6 ng/mL (0-5.0)
[2018-12-22 20:00] VITALS: BP 146/72
[2018-12-22 20:18] VITALS: BP_SYST 146; BP_SYST 153; BP_DIAS 72; BP_DIAS 77
[2018-12-22] MEDS ORDERED: IOPAMIDOL 370 MG/ML 200 ML INFUS..BTL INJ ONE (20:49)
[2018-12-22] MEDS ORDERED: SODIUM CHLORIDE 0.9% 50ML 50 ML ONE (20:49)
[2018-12-22] MEDS ORDERED: QUINAPRIL HCL 10 MG TAB PO SCH (21:00)
[2018-12-22] MEDS ORDERED: QUINAPRIL HCL 20 MG TAB PO SCH (21:00)
[2018-12-22] MEDS: HYDRALAZINE HCL 25 MG TAB PO SCH (21:32)
[2018-12-23] VITALS (8 sets, daily range): BP systolic 116–194; BP diastolic 55–85
--- NOTE | 2018-12-23 02:04 | History and Physical ---
HISTORY OF PRESENT ILLNESS: This is a 78-year-old female with a history of hypertension and low back pain, was in usual state of health until the patient started to have severe back pain. The patient was seen by the Pain Management, Dr. Lyn. The patient has to get an epidural steroid injection. In lieu of her medical condition and pain, the patient was given a steroid pack and the patient started to get pedal edema and high blood pressure and hypertension was noticed. Today was the day of epidural steroid injection by Dr. Lyn, but with the blood pressure being high and bilateral lower extremity pedal edema, the patient was sent to the ER for rule out cardiovascular problems. The patient also had history of some shortness of breath. No cough. No chest pain and no other respiratory distress. PAST MEDICAL HISTORY: History of hypertension, history of hyperlipidemia, history of gout, and history of osteoarthritis. PAST SURGICAL HISTORY: History of hysterectomy and history of back injections in the past. FAMILY HISTORY: Noncontributory. SOCIAL HISTORY: Smoker. Not alcoholic and also the patient has no history of drug abuse. MEDICATIONS: Metoprolol 50 mg daily, allopurinol 300 mg daily, Tizanidine 2 mg daily, lisinopril 20 mg daily and hydralazine 50 mg twice a day. ALLERGIES: ALLERGIC TO CODEINE, HISTORY OF ALLERGY TO TRAMADOL, AND HISTORY OF SULFA ALLERGY TOO. REVIEW OF SYSTEMS: Negative for chest pain. Positive for shortness of breath. No nausea or vomiting. No diarrhea. No constipation. No rectal bleeding. No hematochezia. No hematemesis. Positive for severe low back pain and some headaches. PHYSICAL EXAMINATION: VITAL SIGNS: Temperature is 96.2 and blood pressure is 153/77. HEENT: Normocephalic and atraumatic. Pupils are reactive to light and accommodation. CVS: S1 and S2 normal. Regular rate and rhythm. ABDOMEN: Nontender and nondistended. EXTREMITIES: No clubbing. No cyanosis. Positive for edema bilaterally. LABORATORY VALUES: Initial white count is 9.25, hemoglobin 14.1, and hematocrit 41.6. Chemistry; sodium 126, potassium 4.0, BUN of 9, creatinine 0.75. Troponins have trended to be negative so far x2. Coags also normal. D-dimer 0.35. MICROBIOLOGY: Urine culture is pending. ASSESSMENT: 78-year-old female with accelerated hypertension. PLAN: 1. Continue with IV hydralazine. 2. Intractable pain. The patient is on IV Dilaudid and also on Phenergan. 3. Low back pain. The patient will continue on Dilaudid at this time. 4. Hyperlipidemia. We will continue on her cholesterol medicine. 5. History of allergies to codeine. Avoidance of codeine and synthetic codeine will be done too. The patient has been seen by Cardiology. Further workup has been ordered. CT scan has been ordered. Steroid has been stopped. IV fluids will be continued. The patient's sodium will be checked for hyponatremia in the morning further recommendation per clinical course. We will continue to monitor the patient along with consultants. MD CHANTE StaffordJ/MODL /[id number]
[2018-12-23] MEDS: ONDANSETRON HCL INJ 2MG/ML 2ML 2 MG/ML VIAL IV PRN (02:33)
[2018-12-23] MEDS: HYDROMORPHONE 1MG/1ML INJ IV PRN ×4 (02:33→20:15)
[2018-12-23 05:46] LABS: BASOPHILS % 0.2 % (0.0-1.0); EOSINOPHILS % 0.1 % (0.0-6.0); HEMATOCRIT 36.7 % (34.2-44.1); HEMOGLOBIN 12.7 g/dL (12.0-16.0); LYMPHOCYTES # (AUTO) 0.7 (1.0-3.2); MEAN CORPUSCULAR HEMOGLOBIN 33.1 pg (28-32); MEAN CORPUSCULAR HGB CONC 34.6 g/dL (31-35); MEAN CORPUSCULAR VOLUME 95.6 fL (81-99); MONOCYTES # (AUTO) 1.2 (0.2-0.8); MONOCYTES % 6.9 % (4.4-11.3); NEUTROPHILS # (AUTO) 15.3 (2.1-6.9); NEUTROPHILS % 88.4 % (38.7-80.0); PLATELET COUNT 240 x10e3/uL (140-360); RED BLOOD COUNT 3.84 x10e6/uL (3.6-5.1)
[2018-12-23 06:08] LABS: ALANINE AMINOTRANSFERASE 19 IU/L (0-55); ALBUMIN 3.6 g/dL (3.5-5.0); ALBUMIN/GLOBULIN RATIO 1.5 (0.8-2.0); ALKALINE PHOSPHATASE 72 IU/L (40-150); ANION GAP 13.8 mmol/L (8-16); BLOOD UREA NITROGEN 10 mg/dL (7-26); BUN/CREATININE RATIO 12 (6-25); CALCIUM 9.3 mg/dL (8.4-10.2); CARBON DIOXIDE 22 mmol/L (22-29); CHLORIDE 92 mmol/L (98-107); CHOL/HDL RATIO 2.4 (3.0-3.6); CHOLESTEROL 115 MD/DL (0-199); CREATININE, SERUM 0.84 mg/dL (0.57-1.11); EST GLOMERULAR FILTRATION RATE > 60 ML/MIN (60-); GLUCOSE 100 mg/dL (74-118); HDL CHOLESTEROL 48 MG/DL (40-60); LDL CHOLESTEROL 49 MG/DL (60-130); POTASSIUM 4.8 mmol/L (3.5-5.1); SODIUM 123 mmol/L (136-145); TRIGLYCERIDES 88 MG/DL (0-149)
[2018-12-23] MEDS ORDERED: PROMETHAZINE 25MG/ NS 50ML (IV) IV PRN (06:45)
[2018-12-23] MEDS: PIPER-TAZ 3.375 GM 50 ML IV SCH ×4 (07:00→23:57)
[2018-12-23 07:04] LABS: CREATINE KINASE MB 2.1 ng/mL (0-5.0)
--- NOTE | 2018-12-23 07:10 | NUR ---
GAVE REPORT TO ONCOMING NURSE. PATIENT IN BED. CALL LIGHT WITHIN REACH. AT BEDSIDE
[2018-12-23] MEDS ORDERED: HYDROMORPHONE 2MG/ML 2 MG/ML ML IV PRN (07:15)
--- NOTE | 2018-12-23 08:41 | Progress Note ---
DATE: SUBJECTIVE: 78-year-old female, who comes in with nausea and vomiting, also complains of lower extremity edema and swelling. The patient is currently nauseated and had one vomitus episode in front of me. The patient otherwise has no chest pain, no shortness of breath. OBJECTIVE: VITAL SIGNS: Temperature is 97.5, pulse of 68, blood pressure is 150/74 with a pulse oximetry of 93%. HEENT: Normocephalic and atraumatic. The patient appears sick in her stomach. NECK: No JVD present. CVS: S1 and S2 normal. Regular rate and rhythm. ABDOMEN: Tender diffusely today. BACK: Tenderness present. EXTREMITIES: Positive for edema. LABORATORY VALUE: There is marked shift in her white count 17,000, hemoglobin of 12.7, hematocrit of 36.7, and neutrophil count is elevated at 88.4. Coags are normal. D-dimer is normal. Chemistries are pending at this time. Awaiting a sodium level. Coags are normal. MICROBIOLOGY: Urine culture has no growth so far, still pending. CT chest and CT abdomen pelvis ordered. The patient is, however, very nauseous for the scan. ASSESSMENT: 1. Back pain, intractable. 2. Accelerated hypertension. 3. Abdominal pain. 4. Leukocytosis. 5. Intractable nausea. PLAN: The patient needs a CT scan. We might increase her Dilaudid to 2 mg and give her 25 mg of Phenergan, [address] scan, also Valium dose can be given. The patient is currently on no antibiotic. We will Zosyn 3.375 mg q.6 hours to her profile for hyponatremia. We will await sodium levels. Further recommendation per clinical course. We will continue to monitor the patient along with consultants. MD STEPHEN Stafford/EMILIANOL /[id number]
[2018-12-23] MEDS: HYDRALAZINE HCL 25 MG TAB PO SCH ×2 (09:00→16:57)
[2018-12-23] MEDS: PANTOPRAZOLE 40 MG 10ML VIAL IV SCH ×2 (09:00→16:57)
--- NOTE | 2018-12-23 09:44 | Diagnostic Imaging Report ---
EXAM: CT Chest, Abdomen and Pelvis WITH intravenous contrast INDICATION: Shortness of breath, pelvic mass COMPARISON: Chest radiograph of 12/22/2018 TECHNIQUE: The chest, abdomen and pelvis were scanned utilizing a multidetector helical scanner from the thoracic inlet to the pubic symphysis following administration of IV contrast. Coronal and sagittal reformations were obtained. Scans were performed in the pulmonary arterial phase with PE protocol for the chest and portal venous phase for the abdomen/pelvis. IV CONTRAST: Isovue 370 ORAL CONTRAST: Water COMPLICATIONS: None RADIATION DOSE: Total DLP: 1668.0 mGy*cm Dose modulation, iterative reconstruction, and/or weight based adjustment of the mA/kV was utilized to reduce the radiation dose to as low as reasonably achievable. FINDINGS: LINES/ TUBES: None. LUNGS AND AIRWAYS: The central airways are patent. Mild apical pleural parenchymal thickening/scarring. Mild bilateral centrilobular emphysema. No focal consolidation. No pulmonary edema. Mild right lower lobe dependent subsegmental atelectasis. No suspicious pulmonary nodules. PLEURA: No pleural effusion. No pneumothorax. HEART AND MEDIASTINUM: The thyroid gland is normal. No supraclavicular, mediastinal or hilar lymphadenopathy. The heart is not enlarged. No pericardial effusion. No right heart strain. There are no filling defects in the pulmonary arteries to the level of the segmental branches to suggest pulmonary embolism. The subsegmental branches are not well opacified. There are atherosclerotic calcifications of the aorta and great vessels and minimal atherosclerotic calcic dictations of the coronary arteries. No aortic aneurysm. No aortic dissection. HEPATOBILIARY: Scattered subcentimeter calcified granulomas in the liver. No other focal liver lesions. No biliary ductal dilation. The gallbladder is mildly distended. No radiopaque gallstones, wall thickening, or pericholecystic fluid to suggest cholecystitis. SPLEEN: Scattered subcentimeter calcified granulomas in the nonenlarged spleen. PANCREAS: No focal masses or ductal dilatation. ADRENALS: No adrenal nodules. KIDNEYS/URETERS: No hydronephrosis, stones, or solid mass lesions. PELVIC ORGANS/BLADDER: Status post hysterectomy. PERITONEUM / RETROPERITONEUM: No free air or fluid. LYMPH NODES: No lymphadenopathy. VESSELS: Moderate atherosclerotic calcifications of the nonaneurysmal abdominal aorta and major branches. GI TRACT: Severe sigmoid and distal descending colon diverticulosis without CT evidence of diverticulitis. No abnormal bowel wall thickening. No bowel obstruction. Normal appendix. BONES AND SOFT TISSUES: No acute osseous injury. No suspicious lytic or blastic lesions. Degenerative changes of the visualized spine. Grade 1 anterolisthesis at L4-5. IMPRESSION: No pulmonary embolism or other acute cardiopulmonary abnormality. Severe sigmoid and distal descending colon diverticulosis without CT evidence of diverticulitis. Signed by: Tavo Romo MD on 12/23/2018 9:41 AM
[2018-12-23] MEDS: PROMETHAZINE 12.5MG/ NACL 0.9% 50 ML IV PRN ×3 (11:05→20:16)
[2018-12-23] MEDS: CYANOCOBALAMIN 1,000 MCG TAB PO SCH (15:17)
[2018-12-23] MEDS: METOPROLOL TARTRATE 50 MG TAB PO SCH (15:21)
[2018-12-23] MEDS: ASPIRIN 81 MG ENTERIC COATED PO SCH (15:21)
[2018-12-23] MEDS: SODIUM CHLORIDE 1 GM TAB PO SCH (16:57)
[2018-12-23] MEDS: ENOXAPARIN SOD INJ 40 MG/0.4 ML SYR SC SCH (16:57)
--- NOTE | 2018-12-23 17:26 | NUR ---
Notified Dr. Colby patient reported she was experiencing, pain but it was more spasm pain received orders for Robaxin 750mg PO, every 6 hours PRN
[2018-12-23] MEDS: METHOCARBAMOL 750 MG TAB PO PRN (18:18)
--- NOTE | 2018-12-23 19:00 | NUR ---
Received report from previous nurse. call light within reach. Patient in bed. at bedside.
--- NOTE | 2018-12-23 20:30 | NUR ---
Patient peed in bedside commode and had a order for bladder scan after she pees. bladder scan shows 30 cc left in bladder.
[2018-12-24] VITALS (8 sets, daily range): BP systolic 120–183; BP diastolic 63–83
[2018-12-24] MEDS: HYDROMORPHONE 1MG/1ML INJ IV PRN ×5 (00:28→21:15)
[2018-12-24] MEDS: METHOCARBAMOL 750 MG TAB PO PRN ×2 (02:02→15:57)
[2018-12-24] MEDS: PROMETHAZINE 12.5MG/ NACL 0.9% 50 ML IV PRN ×4 (02:09→21:15)
[2018-12-24 05:34] LABS: BASOPHILS % 0.2 % (0.0-1.0); EOSINOPHILS # (AUTO) 0.1 (0.0-0.4); EOSINOPHILS % 0.5 % (0.0-6.0); HEMATOCRIT 36.9 % (34.2-44.1); HEMOGLOBIN 12.6 g/dL (12.0-16.0); LYMPHOCYTES # (AUTO) 1.1 (1.0-3.2); LYMPHOCYTES % 10.4 % (18.0-39.1); MEAN CORPUSCULAR HEMOGLOBIN 33.1 pg (28-32); MEAN CORPUSCULAR HGB CONC 34.1 g/dL (31-35); MEAN CORPUSCULAR VOLUME 96.9 fL (81-99); MONOCYTES # (AUTO) 0.9 (0.2-0.8); NEUTROPHILS # (AUTO) 8.3 (2.1-6.9); NEUTROPHILS % 79.7 % (38.7-80.0); PLATELET COUNT 229 x10e3/uL (140-360); RED BLOOD COUNT 3.81 x10e6/uL (3.6-5.1); RED CELL DISTRIBUTION WIDTH 12.9 % (11.7-14.4)
[2018-12-24] MEDS: PIPER-TAZ 3.375 GM 50 ML IV SCH ×3 (05:57→17:59)
[2018-12-24] MEDS: HYDRALAZINE HCL 20 MG/ML VIAL IV PRN (05:57)
[2018-12-24 06:00] LABS: ANION GAP 15.2 mmol/L (8-16); BLOOD UREA NITROGEN 11 mg/dL (7-26); BUN/CREATININE RATIO 13 (6-25); CALCIUM 9.2 mg/dL (8.4-10.2); CARBON DIOXIDE 21 mmol/L (22-29); CHLORIDE 98 mmol/L (98-107); CREATININE, SERUM 0.85 mg/dL (0.57-1.11); EST GLOMERULAR FILTRATION RATE > 60 ML/MIN (60-); GLUCOSE 83 mg/dL (74-118); POTASSIUM 4.2 mmol/L (3.5-5.1); SODIUM 130 mmol/L (136-145)
--- NOTE | 2018-12-24 06:33 | NUR ---
CALLED AND TALKED TO DR. MURPHY ABOUT PATIENT HAVING LUMBAR BACK PAIN. HE ORDERED MRI LUMBAR BACK WITH MAC SEDATION
--- NOTE | 2018-12-24 07:00 | NUR ---
RECEIVED PATIENT RESTING IN BED NO SIGNS OF DISTRESS. BED LOW, WHEELS LOCKED, SIDE RAILS X2. CALL LIGHT IN REACH WILL CONTINUE TO MONITOR PATIENT.
--- NOTE | 2018-12-24 07:22 | NUR ---
GAVE REPORT TO ONCOMING NURSE. PATIENT IN BED. CALL LIGHT WITHIN REACH. AT BEDSIDE
--- NOTE | 2018-12-24 08:02 | Progress Note ---
DATE: SUBJECTIVE: The patient is a 78-year-old female, who comes in with intractable back pain. Continues to be on Dilaudid and Robaxin, interchangeable every 4 hours and the patient still continues to have pain 10/10 in intensity with some nausea, expressed no chest pain. OBJECTIVE: VITAL SIGNS: Temperature is 97.4, pulse of 74, respirations of 18, blood pressure is 149/83, and pulse oximetry of 94%. HEENT: Normocephalic and atraumatic. Pupils are reactive to light and accommodation. CVS: S1 and S2 normal. Regular rate and rhythm. ABDOMEN: Nontender and nondistended. BACK: Tender to palpation. Paraspinal muscles are rigid in spasm. EXTREMITIES: No clubbing, no cyanosis, trace edema. LABORATORY VALUES: White count is 10.39, down from 17,000 yesterday, and left shift of has gone. Chemistry; sodium 130, potassium of 4.2, BUN of 11 and creatinine 0.84. The patient's LDL was 49. The patient's CT scan was essentially within normal limits. CT chest showed no pulmonary embolism or cardiopulmonary abnormalities. Abdominal CT showed no significant findings. ASSESSMENT: This is a 78-year-old female with acute low back pain. The patient will need MRI. We will go ahead and do a sedation MRI, possible consult with Neurosurgery and/or Interventional Radiology for possible intervention. Further recommendation per clinical course. We will continue to monitor the patient. The patient also has an additional diagnosis of leukocytosis, which is resolved with antibiotics and hyponatremia, which is better with sodium tablets. Further recommendation per clinical course. MD STEPHEN Stafford/EMILIANOL /[id number]
[2018-12-24] MEDS: PANTOPRAZOLE 40 MG 10ML VIAL IV SCH ×2 (08:23→17:01)
--- NOTE | 2018-12-24 09:54 | NUR ---
NEW ORDER FROM DR. CASTILLO FOR FENTANYL PATCH 25 MCG. NEW ORDERS IMPLEMENTED.
[2018-12-24] MEDS ORDERED: HYDROCODONE/APAP 10MG-325MG TAB PO PRN (10:00)
[2018-12-24] MEDS: METOPROLOL TARTRATE 50 MG TAB PO SCH (10:01)
[2018-12-24] MEDS: HYDRALAZINE HCL 25 MG TAB PO SCH ×2 (10:01→17:01)
[2018-12-24] MEDS: SODIUM CHLORIDE 1 GM TAB PO SCH ×2 (10:01→17:01)
[2018-12-24] MEDS: CYANOCOBALAMIN 1,000 MCG TAB PO SCH (10:01)
[2018-12-24] MEDS: ASPIRIN 81 MG ENTERIC COATED PO SCH (10:01)
--- NOTE | 2018-12-24 10:37 | NUR ---
DR. CASTILLO ROUNDING ON PATIENT. NEW ORDER FOR LIDOCAINE PATCH. NEW ORDERS IMPLEMENTED.
[2018-12-24] MEDS: FENTANYL 25 MCG/HR PATCH TOP SCH (10:38)
--- NOTE | 2018-12-24 11:12 | NUR ---
DR. SIMI AMADOR, ORDER TO DC TELEMETRY.
[2018-12-24] MEDS: LIDOCAINE 5% PATCH TP SCH (11:29)
--- NOTE | 2018-12-24 14:53 | NUR ---
Nutrition Screen Note RD Recommendation for Physician: -Continue current diet per MD. Plan of Care: RD following, monitoring for tolerance and adequacy. Pt verified her allergy to eggs and can self select (this is documented within HT) Nutrition reason for involvement: Trigger- allergy Primary Diagnose(s): dyspnea, HTN, lower extremity edema PMH: History of hypertension, history of hyperlipidemia, history of gout, and history of osteoarthritis. Ht: 62 in Wt: 152 lb BMI: 27.8kg/m2 IBW:[address] Assessment: 12/24: 78 YOF admitted for HTN, lower extremity edema with PMH listed above. Pt was seen d/t her allergy to eggs. The pt stated she is only allergic to eggs not food products that are made with eggs. Pt reported she would not need this recorded within her EMR d/t the fact that she can self select, but this is documented within HT. Pt denied N/V/C/D/chewing or swallowing issues. Pt is going for MRI soon. She had no other questions or concerns. Chart reviewed. Labs and meds reviewed. Will continue to monitor. Current Diet: cardiac Malnutrition Evaluation 12/24 The patient does not meet criteria for a specified degree of malnutrition at this time. Will re-evaluate at follow-up as appropriate. Diet Education Needs Assessment: Diet education not indicated. Nutrition Care Level: low Signed: Ashlee Herrera, XUAN, LD
[2018-12-24] MEDS: ENOXAPARIN SOD INJ 40 MG/0.4 ML SYR SC SCH (17:01)
[2018-12-24] MEDS: OXYCODONE/ACETAMINOPHEN 5-325 1 EACH TABLET PO PRN (20:50)
[2018-12-25] VITALS (8 sets, daily range): BP systolic 138–201; BP diastolic 65–101
[2018-12-25] MEDS: PIPER-TAZ 3.375 GM 50 ML IV SCH ×4 (00:02→17:43)
[2018-12-25] MEDS: METHOCARBAMOL 750 MG TAB PO PRN ×3 (00:14→16:27)
--- NOTE | 2018-12-25 00:57 | NUR ---
Assessment done.no resp.distress.voided.medicated with pain med.bed locked and in lowest position.phone and call light within reach.instructed to call for assistance as needed.
[2018-12-25] MEDS: HYDROMORPHONE 1MG/1ML INJ IV PRN ×6 (01:21→23:50)
[2018-12-25] MEDS: PROMETHAZINE 12.5MG/ NACL 0.9% 50 ML IV PRN ×6 (01:22→23:52)
--- NOTE | 2018-12-25 06:11 | NUR ---
BP 188/76 .T.METOPROLOL 50 MG PO GIVEN.
[2018-12-25] MEDS: METOPROLOL TARTRATE 50 MG TAB PO SCH (06:23)
--- NOTE | 2018-12-25 06:50 | NUR ---
Bed side shift report given to the oncoming Rn.stable condition.
--- NOTE | 2018-12-25 07:05 | NUR ---
RECEIVED PATIENT ASLEEP IN BED AT THIS TIME. NO SIGNS OF DISTRESS. BED LOW, WHEELS LOCKED, SIDE RAILS X2. CALL LIGHT IN REACH WILL CONTINUE TO MONITOR PATIENT.
[2018-12-25] MEDS: ASPIRIN 81 MG ENTERIC COATED PO SCH (08:21)
[2018-12-25] MEDS: PANTOPRAZOLE 40 MG 10ML VIAL IV SCH ×2 (08:21→16:13)
[2018-12-25] MEDS: LIDOCAINE 5% PATCH TP SCH (08:21)
[2018-12-25] MEDS: CYANOCOBALAMIN 1,000 MCG TAB PO SCH (08:21)
[2018-12-25] MEDS: SODIUM CHLORIDE 1 GM TAB PO SCH ×2 (08:21→16:18)
[2018-12-25] MEDS: HYDRALAZINE HCL 25 MG TAB PO SCH ×2 (08:21→16:18)
--- NOTE | 2018-12-25 10:05 | NUR ---
PATIENT A/O X3, EVEN RESPIRATIONS ON RA. LUNG SOUNDS CLEAR TO AUSCULTATION. BOWEL SOUNDS PRESENT. 1+ PITTING EDEMA TO BLE. PATIENT AMBULATES WITH ASSISTANCE. BACK PAIN 8/10, PRN PAIN MEDICATION AVAILABLE. LEFT WRIST 20 GAUGE IV SL. CALL LIGHT IN REACH WILL CONTINUE TO MONITOR PATIENT.
--- NOTE | 2018-12-25 10:09 | Progress Note ---
DATE: SUBJECTIVE: This is a 78-year-old female, who comes in with intractable back pain. The patient is not able to do her MRI secondary to spasms in her back and the patient has been consulted with Dr. Marroquin of Pain Management. Currently on oxycodone, pantoprazole, Zosyn for intraabdominal infections and also the patient is getting hydromorphone as needed. The patient is scheduled for an MRI with [facility] on Thursday. OBJECTIVE: VITAL SIGNS: Temperature is 97.6, pulse of 94, respirations are 22, blood pressure is 201/93. HEENT: Normocephalic, atraumatic. Pupils are reactive. CVS: S1 and S2 normal. Regular rhythm. BACK: With spasms and tenderness in the lumbar spine. ABDOMEN: Nontender, nondistended. EXTREMITIES: No clubbing, no cyanosis, and/or no edema. LABORATORY VALUES: From yesterday white count had come down to 10.39. Chemistries; sodium was 130 yesterday and potassium 4.2. BUN and creatinine of 11 and 0.85. MICROBIOLOGY: Urine culture with no growth in 36 to 48 hours. ASSESSMENT: 1. Intractable pain, secondary to low back spasm and possible spinal stenosis, needs an MRI with [facility] on Thursday. 2. Intraabdominal infection, unknown etiology at this time. Urine cultures are negative. We will continue with Zosyn. Check CBC tomorrow. If CBC is normalized, we will discontinue the Zosyn. 3. Hyponatremia, SIADH corrected with sodium tablets. The patient is doing well. 4. Acute renal failure, better. Continue with fluids. Further recommendation per clinical course and we will continue monitor the patient along with pain management and Cardiology. MD CHANTE StaffordJ/MODL /[id number]
--- NOTE | 2018-12-25 11:19 | NUR ---
PATIENT COMPLAINT OF PAIN TO LEFT WRIST IV. IV REMOVED, CATHETER TIP INTACT AND PRESSURE DRESSING APPLIED. NEW IV TO RIGHT WRIST 20 GAUGE.
[2018-12-25] MEDS: ENOXAPARIN SOD INJ 40 MG/0.4 ML SYR SC SCH (16:18)
[2018-12-25] MEDS: OXYCODONE/ACETAMINOPHEN 5-325 1 EACH TABLET PO PRN (18:00)
--- NOTE | 2018-12-25 19:10 | NUR ---
Bed side shift report taken from morning Rn.pt is lyeing in the bed.stable condition.
[2018-12-26] VITALS (8 sets, daily range): BP systolic 132–190; BP diastolic 60–88
[2018-12-26] MEDS: PIPER-TAZ 3.375 GM 50 ML IV SCH ×2 (00:03→05:19)
[2018-12-26] MEDS: OXYCODONE/ACETAMINOPHEN 5-325 1 EACH TABLET PO PRN ×5 (00:07→22:30)
[2018-12-26] MEDS: METHOCARBAMOL 750 MG TAB PO PRN ×4 (02:55→23:20)
[2018-12-26] MEDS: HYDROMORPHONE 1MG/1ML INJ IV PRN ×5 (03:50→20:35)
[2018-12-26] MEDS: PROMETHAZINE 12.5MG/ NACL 0.9% 50 ML IV PRN ×5 (03:52→20:35)
[2018-12-26] MEDS: HYDRALAZINE HCL 20 MG/ML VIAL IV PRN (05:00)
--- NOTE | 2018-12-26 06:50 | NUR ---
Bed side shift report given to the oncoming Rn.
[2018-12-26] MEDS: ASPIRIN 81 MG ENTERIC COATED PO SCH (08:17)
[2018-12-26] MEDS: HYDRALAZINE HCL 25 MG TAB PO SCH ×2 (08:17→16:30)
[2018-12-26] MEDS: PANTOPRAZOLE 40 MG 10ML VIAL IV SCH ×2 (08:17→16:29)
[2018-12-26] MEDS: LIDOCAINE 5% PATCH TP SCH (08:18)
[2018-12-26] MEDS: METOPROLOL TARTRATE 50 MG TAB PO SCH (08:18)
[2018-12-26] MEDS: CYANOCOBALAMIN 1,000 MCG TAB PO SCH (08:18)
[2018-12-26] MEDS: SODIUM CHLORIDE 1 GM TAB PO SCH ×2 (08:18→16:30)
--- NOTE | 2018-12-26 11:03 | NUR ---
PATIENT A/O X3, EVEN RESPIRATIONS ON RA. LUNG SOUNDS CLEAR TO AUSCULTATION. BOWEL SOUNDS PRESENT. 2+ PITTING EDEMA TO BLE. PATIENT AMBULATES WITH ASSISTANCE. BACK PAIN 10/10, PRN PAIN MEDICATION AVAILABLE. LEFT WRIST 20 GAUGE IV SL. CALL LIGHT IN REACH WILL CONTINUE TO MONITOR PATIENT.
--- NOTE | 2018-12-26 14:54 | Progress Note ---
DATE: SUBJECTIVE: A 78-year-old female, who comes in with intractable pain in back. The patient has been seen by Pain Management. The patient also has elevated blood pressure secondary to pain. Pain is still described as 10/10. The patient has continuous nausea. Medicines, she is on are (fentanyl) Duragesic patch 25 mg, hydromorphone 1 mg every 3 hours, methocarbamol and also the patient is taking Percocet. The patient is on GI prophylaxis and also on antibiotics at this time for presumable UTI. SUBJECTIVE: VITAL SIGNS: The patient's last temperature is 98.3, pulse of 101, respirations of 20, blood pressure is 190/88, and pulse oximeter of 93%. HEENT: Normocephalic and atraumatic. Pupils are reactive to light and accommodation. CVS: S1 and S2 normal. Regular rate and rhythm. ABDOMEN: Nontender and nondistended. EXTREMITIES: No clubbing, no cyanosis, trace edema. BACK: Tender. Paraspinal muscles are in spasm. IMAGING STUDIES: The patient's MRI is to be scheduled for tomorrow under [facility]. PLAN: Continue with Pain Management at this time. Continue with hypertensive medications at this time and also muscle relaxants. The patient is also getting Phenergan and Zofran for pain control. Her laboratory values white count has normalized and sodium is at 130, so we will go ahead and repeat sodium tomorrow and stop her Zosyn right now. Further recommendations per clinical course. We will continue to monitor the patient until leukocytosis is better. MD STEPHEN Stafford/EMILIANOL /[id number]
[2018-12-26] MEDS: ENOXAPARIN SOD INJ 40 MG/0.4 ML SYR SC SCH (16:30)
--- NOTE | 2018-12-26 19:02 | NUR ---
Bed side shift report taken from morning Tony in the bed.stable condition.
--- NOTE | 2018-12-26 21:00 | NUR ---
Pain level 10/10 noted.medication given.ice pack applied.iv to right wrist is patent.no reps.distress.family member at bed side. bed locked and in lowest position.phone and call light within reach.instructed to call for assistance as needed.
[2018-12-27] VITALS (7 sets, daily range): BP systolic 156–183; BP diastolic 72–94
[2018-12-27] MEDS: HYDROMORPHONE 1MG/1ML INJ IV PRN ×6 (00:40→22:35)
[2018-12-27] MEDS: PROMETHAZINE 12.5MG/ NACL 0.9% 50 ML IV PRN ×6 (00:40→22:35)
[2018-12-27] MEDS: HYDRALAZINE HCL 20 MG/ML VIAL IV PRN ×2 (00:51→05:30)
--- NOTE | 2018-12-27 02:57 | Consultation ---
DATE OF CONSULTATION: 12/23/2018 Pain Management Consultation REASON FOR CONSULTATION: Intractable back pain get worse after being steroid injection given by Dr. Lyn. HISTORY OF PRESENT ILLNESS: This is a 78-year-old white female with a history of multiple medical problems with having ongoing low back pain since 2017. It started being severe intractable back pain. She was seen by the Pain Management, Dr. Lyn, who gave her steroid injection and steroid by mouth her leg. She has to go again for the second epidural shot injection in view of her medical condition and pain and the patient started to getting pedal edema and high blood pressure and hypertension and pain get worse. Today was the day further ALEJANDRA to be done by Dr. Lyn, but with hypertension and both lower extremities pedal edema and cellulitis, she has been seen in the emergency room to rule out cardiovascular problem. She has history of shortness of breath also. Has no cough or chest pain. No other respiratory disease. Pain is 10/10 on a scale of 0 to 10, 0 being none, and 10 being worst pain. Pain is constant, aching, dull, sharp shooting, burning, stabbing, unbearable excruciating pain. PAST MEDICAL HISTORY: Chronic pain syndrome, chronic back pain syndrome, hypertension, history of hyperlipidemia, gout, osteoarthritis. PAST SURGICAL HISTORY: Hysterectomy, back injection multiple time and followed by Dr. Lyn, which all the time not working and making pain worse. FAMILY HISTORY: Nothing contributory. SOCIAL HISTORY: Nonalcoholic. No history of drug abuse. Concern of having opioid medication. CURRENT MEDICATIONS: Metoprolol, allopurinol, tizanidine. ALLERGIES: CODEINE, TRAMADOL, AND SULFA ALLERGY. REVIEW OF SYSTEMS: Negative for chest. Rest of review of systems 18-point is as per history of present illness including severe low back pain and some headache now. PHYSICAL EXAMINATION: VITAL SIGNS: Within normal limits. HEENT: Normocephalic. NECK: Supple. LUNGS: Air entry good bilaterally. HEART: Regular rate and rhythm. ABDOMEN: Soft, obese. SPINE: Lumbar spine shows severe spasm with local tenderness. Kyree of previous . LABORATORY DATA: Lab data reviewed. ASSESSMENT AND PLAN: A 78-year-old patient with chronic acute back pain, intractable pain, taking Phenergan prior to seen by me. She has allergy to codeine and requested by the patient. She has concern about being addicted to pain medications. We stopped the steroid. Her MRI eval is pending because of excruciating pain, she cannot go to MRI, cannot lie down on the table. We will adjust her pain medications to continued pain and they are going to monitor her and get the MRI done. Thank you Dr. Rocha for this patient. I will follow her with you. MD JAVAN Linn/MICHELINE /[id number]
[2018-12-27] MEDS: OXYCODONE/ACETAMINOPHEN 5-325 1 EACH TABLET PO PRN ×3 (04:00→20:20)
--- NOTE | 2018-12-27 05:30 | NUR ---
Bp noted 190/80 mmof hg.Hydralazine 10 mg iv given.
[2018-12-27 05:52] LABS: BASOPHILS % 0.3 % (0.0-1.0); EOSINOPHILS # (AUTO) 0.1 (0.0-0.4); EOSINOPHILS % 1.1 % (0.0-6.0); HEMATOCRIT 35.8 % (34.2-44.1); LYMPHOCYTES # (AUTO) 0.6 (1.0-3.2); LYMPHOCYTES % 9.2 % (18.0-39.1); MEAN CORPUSCULAR HEMOGLOBIN 32.4 pg (28-32); MEAN CORPUSCULAR HGB CONC 33.5 g/dL (31-35); MEAN CORPUSCULAR VOLUME 96.8 fL (81-99); MONOCYTES # (AUTO) 0.6 (0.2-0.8); MONOCYTES % 9.5 % (4.4-11.3); NEUTROPHILS # (AUTO) 5.1 (2.1-6.9); NEUTROPHILS % 79.4 % (38.7-80.0); PLATELET COUNT 259 x10e3/uL (140-360); RED CELL DISTRIBUTION WIDTH 13.2 % (11.7-14.4)
[2018-12-27 06:11] LABS: ANION GAP 15.5 mmol/L (8-16); BLOOD UREA NITROGEN 8 mg/dL (7-26); BUN/CREATININE RATIO 11 (6-25); CALCIUM 8.8 mg/dL (8.4-10.2); CARBON DIOXIDE 20 mmol/L (22-29); CHLORIDE 101 mmol/L (98-107); CREATININE, SERUM 0.73 mg/dL (0.57-1.11); EST GLOMERULAR FILTRATION RATE > 60 ML/MIN (60-); GLUCOSE 98 mg/dL (74-118); POTASSIUM 3.5 mmol/L (3.5-5.1); SODIUM 133 mmol/L (136-145)
--- NOTE | 2018-12-27 06:55 | NUR ---
Maintaining npo for MRI spine.Bed side shift report given to the oncoming Rn.stable condition.
--- NOTE | 2018-12-27 07:17 | Progress Note ---
DATE: SUBJECTIVE: A 78-year-old female, comes in with intractable low back pain. The patient is admitted to the hospital and kept in the hospital for intractable low back pain. The patient cannot sit in one position or lie in one position. I asked to keep moving around. Today, she is scheduled for an MRI with [facility]. Currently has some palpitations, nausea relentless, and also continues with some vomiting too. OBJECTIVE: VITAL SIGNS: Temperature is 97.2, pulse of 76, respirations of 20, blood pressure is 177/70, pulse oximetry of 97% on room air. HEENT: Normocephalic, atraumatic. Pupils reactive to light and accommodation. CVS: S1 and S2 normal. Regular rate and rhythm. ABDOMEN: Nontender, nondistended. EXTREMITIES: No clubbing, no cyanosis, no edema. MEDICATIONS: She is taking hydralazine p.r.n., hydromorphone p.r.n., oxycodone 1 tablet q.4 hours, methocarbamol 750, Lovenox 40 mg subcu daily for DVT prophylaxis. The patient is on hydralazine twice a day, pantoprazole twice a day, metoprolol 50 mg twice a day, aspirin 81 mg daily, and lidocaine patches also. LABORATORY VALUES: The patient's white count is 6.4, hemoglobin of 12, hematocrit is normal. Chemistry; sodium 133, potassium of 3.5, BUN of 8, creatinine of 0.73. ASSESSMENT: 1. A 78-year-old lady with intractable back pain. 2. Leukocytosis, which has resolved. 3. Hypertension. 4. Hyperlipidemia. PLAN: Continue on current pain management. MRI with [facility] today and further recommendation per clinical course and depending on MRI results. MD STEPHEN Stafford/EMILIANOL /[id number]
[2018-12-27] MEDS: ASPIRIN 81 MG ENTERIC COATED PO SCH (07:45)
[2018-12-27] MEDS: HYDRALAZINE HCL 25 MG TAB PO SCH ×2 (07:45→16:43)
[2018-12-27] MEDS: METOPROLOL TARTRATE 50 MG TAB PO SCH (07:45)
[2018-12-27] MEDS: SODIUM CHLORIDE 1 GM TAB PO SCH ×2 (07:46→16:43)
[2018-12-27] MEDS: CYANOCOBALAMIN 1,000 MCG TAB PO SCH (07:46)
[2018-12-27] MEDS: LIDOCAINE 5% PATCH TP SCH (09:00)
[2018-12-27] MEDS: PANTOPRAZOLE 40 MG 10ML VIAL IV SCH (09:47)
[2018-12-27 10:23] LABS: EOSINOPHILS % (MANUAL) 1 % (0-7); LYMPHOCYTES % (MANUAL) 15 % (19-48); MONOCYTES % (MANUAL) 8 % (3.4-9.0); NEUTROPHILS % (MANUAL) 76 % (40-74)
[2018-12-27 10:28] LABS: PLATELET ESTIMATE ADEQUATE; RBC MORPHOLOGY COMMENT ABNORMAL
[2018-12-27 10:29] LABS: PLATELET MORPHOLOGY COMMENT NORMAL
[2018-12-27 10:31] LABS: ANISOCYTOSIS SLIGHT; POIKILOCYTOSIS SLIGHT
[2018-12-27] MEDS: FENTANYL 25 MCG/HR PATCH TOP SCH (10:36)
--- NOTE | 2018-12-27 13:43 | Diagnostic Imaging Report ---
ADDENDUM #1 Partially visualized, approximately 1.4 cm slightly STIR hyperintense intradural, extramedullary mass at the T10 level exerts mild local mass effect on the spinal cord. This is seen only on sagittal images and better evaluated on subsequent contrast enhanced thoracic spine MRI. This is most likely a meningioma; schwannoma is less likely. Signed by: Dr. Vance Larsen M.D. on 12/29/2018 9:30 AM ORIGINAL REPORT MRI SPINE LUMBAR WO HISTORY: Low back pain COMPARISON: CT of the abdomen and pelvis 12/22/2018 TECHNIQUE: Sagittal T1, sagittal T2, sagittal STIR, axial T2, coronal T2, and axial proton density weighted images of the lumbar spine were obtained without contrast. DISCUSSION: Number of non-rib bearing lumbar vertebral bodies: 5. Alignment: Normal lordosis. No scoliosis. Vertebrae: No fractures, or neoplasm. Conus medullaris: Normal, ends at L1. Cauda equina: No masses or arachnoiditis. Posterior paraspinal muscles: Well preserved. No signal abnormalities. Soft tissues: Colonic diverticulosis and distended bladder are partially visualized. There is questionable cholelithiasis. Mild to moderate multilevel lumbar disc degeneration is present. There are nonspecific minimal inflammatory endplate changes on the left at L3-L4. T12-L1: Patent canal and foramina. L1-L2: Patent canal and foramina. L2-L3: Mild canal stenosis due to disc bulge and ligamentum flavum thickening. Mild right foraminal stenosis due to disc bulge and facet arthrosis. No significant left foraminal stenosis. L3-L4: Mild to moderate canal stenosis due to disc bulge and ligamentum flavum thickening. Both lateral recesses are slightly effaced. Mild bilateral foraminal stenoses due to disc bulge and facet arthrosis. L4-L5: Grade 1 anterolisthesis of L4 on L5 due to advanced bilateral L4-L5 facet arthrosis. Bilateral L4-L5 facet effusions are present. Severe canal stenosis due to uncovered disc bulge and ligamentum flavum thickening. Both lateral recesses are effaced. Moderate right and mild to moderate left foraminal stenoses due to uncovered disc bulge and facet arthrosis. L5-S1: Mild to moderate bilateral foraminal stenoses due to disc bulge and facet arthrosis. No significant canal stenosis. IMPRESSION: 1. Mild to moderate multilevel lumbar disc degeneration. Nonspecific minimal inflammatory endplate changes on the left at L3-L4. 2. Grade 1 anterolisthesis of L4 on L5 due to advanced bilateral L4-L5 facet arthrosis. 3. Multilevel degenerative canal stenoses - severe at L4-L5. 4. Multilevel degenerative foraminal stenoses - moderate right and mild to moderate left at L4-L5; mild to moderate bilaterally at L5-S1. Signed by: Dr. Vance Larsen M.D. on 12/27/2018 1:40 PM
[2018-12-27] MEDS ORDERED: ONDANSETRON HCL 4 MG ORAL DISINTEGRATING TAB PO PRN (16:30)
[2018-12-27] MEDS: ENOXAPARIN SOD INJ 40 MG/0.4 ML SYR SC SCH (16:43)
[2018-12-27] MEDS: PANTOPRAZOLE SOD 40 MG TABEC PO SCH (16:43)
[2018-12-27] MEDS ORDERED: MIDAZOLAM HCL 2 MG/2 ML VIAL ONE (18:26)
--- NOTE | 2018-12-27 19:15 | NUR ---
Completed bedside report with morning nurse. Pt alert and orient to name, lying in bed HOB 90 degrees. c/o moderate back pain, previously medicated. Warm compress to back given. Call light within reach. Will continue to monitor.
[2018-12-27] MEDS: METHOCARBAMOL 750 MG TAB PO PRN (22:50)
[2018-12-28] VITALS: BP 186/85
[2018-12-28] MEDS: OXYCODONE/ACETAMINOPHEN 5-325 1 EACH TABLET PO PRN ×3 (01:45→16:40)
[2018-12-28] MEDS: HYDROMORPHONE 1MG/1ML INJ IV PRN ×4 (02:55→14:54)
[2018-12-28] MEDS: PROMETHAZINE 12.5MG/ NACL 0.9% 50 ML IV PRN ×2 (02:55→07:25)
[2018-12-28 04:00] VITALS: BP 189/90
[2018-12-28] MEDS: METHOCARBAMOL 750 MG TAB PO PRN ×2 (06:00→20:41)
[2018-12-28 07:30] VITALS: BP_SYST 142; BP_SYST 217; BP_DIAS 88; BP_DIAS 93
[2018-12-28] MEDS: HYDRALAZINE HCL 25 MG TAB PO SCH ×2 (07:44→16:47)
[2018-12-28] MEDS: METOPROLOL TARTRATE 50 MG TAB PO SCH (07:44)
[2018-12-28] MEDS: PANTOPRAZOLE SOD 40 MG TABEC PO SCH ×2 (07:45→16:47)
[2018-12-28 08:15] VITALS: BP 217/93
[2018-12-28] MEDS: LIDOCAINE 5% PATCH TP SCH (09:00)
[2018-12-28] MEDS: ASPIRIN 81 MG ENTERIC COATED PO SCH (09:00)
[2018-12-28] MEDS: SODIUM CHLORIDE 1 GM TAB PO SCH ×2 (09:00→16:48)
--- NOTE | 2018-12-28 09:00 | NUR ---
The pt. has been advised that she needs to not eat or drink anything as she is scheduled for m r i under anesthesia. visited and plans to transfer to [place] for surgery.
[2018-12-28] MEDS ORDERED: GADOBENATE DIMEGLUMINE 1 ML IV ONE (09:37)
[2018-12-28 11:05] VITALS: BP 187/84
[2018-12-28] MEDS ORDERED: SODIUM CHLORIDE 0.9% 500ML 500 ML ONE (12:15)
--- NOTE | 2018-12-28 13:51 | Diagnostic Imaging Report ---
EXAMINATION: MRI of the thoracic spine without and with contrast HISTORY: Low back pain COMPARISON: Lumbar spine MRI 12/27/2018 TECHNIQUE: Sagittal T1 without contrast, T2, and STIR; axial T2. Coronal T2. Postcontrast axial and sagittal T1 fat sat. Intravenous contrast: 17 mL of MultiHance. FINDINGS: Curvature: Normal kyphosis. Vertebrae: No evidence of recent fracture, infection, or neoplasm. Discs: No significant degenerative changes. Spinal canal: Approximately 1.8 transverse x 0.9 cm AP diameter homogeneously enhancing extra medullary intradural mass (dural based) in the right anterior aspect of the spinal canal at the level of T10, with associated canal stenosis and compression of the cord dorsally. Spinal cord: Compressed dorsally at T10 by the above-mentioned extra medullary mass without abnormal signal. Foramina: Unremarkable. Paraspinal soft tissues: Unremarkable. Proximal ribs: No abnormal signal intensity. 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 The differential diagnosis will include a meningioma, less likely a schwannoma. Signed by: Dr. Dominga Ross M.D. on 12/28/2018 1:48 PM
[2018-12-28] MEDS: CYANOCOBALAMIN 1,000 MCG TAB PO SCH (14:52)
[2018-12-28 15:38] VITALS: BP 176/81
[2018-12-28] MEDS ORDERED: HYDROMORPHONE 1MG/1ML INJ IV PRN (15:45)
[2018-12-28] MEDS: ENOXAPARIN SOD INJ 40 MG/0.4 ML SYR SC SCH (16:48)
[2018-12-28] MEDS ORDERED: DEXAMETHASONE SOD PHOS INJ 4 MG/ML VIAL IV SCH (18:00)
--- NOTE | 2018-12-28 18:30 | NUR ---
Report called to [facility] and the ambulance is in route for transfer.
[2018-12-28] MEDS ORDERED: MIDAZOLAM HCL 2 MG/2 ML VIAL ONE (18:32)
--- NOTE | 2018-12-28 19:20 | NUR ---
Report completed with morning nurse. Pt alert and orient to name, lying in bed HOB 90 degrees. c/o 8/10 back pain, previously medicated. Call light within reach. Will continue to monitor.
--- NOTE | 2018-12-28 20:43 | Progress Note ---
DATE: SUBJECTIVE: A 78-year-old female, who comes in with low back, continues to have pain. MRI was done today. The thoracic spine MRI shows well-circumcised extramedullary intradural lesion of the right ventral spinal canal at the level of T10 associated with severe stenosis and chronic compression of cord dorsally. The patient is currently scheduled to be transferred to nearby hospital for spinal surgery with Dr. Martinez. Currently, pain is not controlled, continues to be in pain. OBJECTIVE: VITAL SIGNS: Temperature is 96.9, pulse of 74, respirations of 18, blood pressure is 176/81, pulse oximeter of 96%. HEENT: Normocephalic, atraumatic. Pupils are reactive to light and accommodation. CVS: S1 and S2. Normal rate and rhythm. ABDOMEN: Nontender, nondistended. EXTREMITIES: No clubbing, no cyanosis, no edema. SPINE: Tender in the thoracic spine and the lumbar spine. LABORATORY VALUES: The patient's white count is normal. Hemoglobin and hematocrit are normal. Chemistries are within normal limits. ASSESSMENT: Thoracic spine tumor. PLAN: Resection of the tumor by Dr. Martinez and will be done at [facility] or [facility]. The patient is going to be transferred there tonight for surgery in the morning. Further recommendation per clinical course. We will continue with her current cardiac medications. MD STEPHEN Stafford/MODL /[id number]
--- NOTE | 2018-12-28 20:43 | NUR ---
Pt D/C'd to [facility] via stretcher with EMS. Pt has chronic back pain with 10/10 pain. RR even and unlabored 20. No acute distress noted. at side. Pt/family verbalized understanding of D/C instructions. EMT with paperwork.
--- NOTE | 2018-12-28 21:25 | Consultation ---
DATE OF CONSULTATION: 12/28/2018 REASON FOR CONSULTATION: Severe low back pain and bilateral leg weakness and inability to ambulate. HISTORY OF PRESENT ILLNESS: The patient is a 78-year-old woman, who has had low back pain and intermittent leg pain for the past 2 years. She has previously been diagnosed with L4-L5 grade 1 degenerative spondylolisthesis and moderate spinal stenosis. In August 2017, she had an MRI of the thoracic spine that also revealed a lower thoracic spinal extradural tumor consistent with meningioma. At that time, she saw another neurosurgeon, who recommended conservative followup even though there was radiographic evidence of cord compression. The patient has been treated intermittently with lumbar epidural steroid injections. However, over the past couple of weeks, she has developed increasing severe low back and mid back pain and intractable muscle spasms and bilateral leg weakness to the point that she can no longer ambulate or even stand for any significant period of time. The pain radiates to both hips, but not down the legs. She feels weak in both legs and has difficulty raising against gravity in bed. She is able to walk with significant difficulty with a walker. She denies any bowel or bladder incontinence. She has patchy nondermatomal numbness in both legs. She denies any numbness in the abdomen. Since admission at this hospital, her pain has been intractable instead of being on Dilaudid and muscle relaxants and fentanyl patch. She has had to undergo general anesthesia in order to go through the MRI on 2 separate sessions. She also complains of bilateral leg swelling. She has undergone a cardiac evaluation by Dr. Davidson and has had bilateral lower extremity venous Dopplers, which have been negative. PHYSICAL EXAMINATION: On examination, the patient is in extreme distress due to pain. She cannot lie supine or sit up on the edge of the bed due to pain and has to be at a 45-degrees angle to find some semblance of comfort. She can only lift her legs against gravity about 2 inches. This morning when I saw her, she was able to sit on the bedside commode, but was in severe pain. She can barely stand with maximal one-person assistance and cannot walk. Deep tendon reflexes are hyperactive in the patellar and Achilles tendons and graded as 3+. Plantar responses are extensor bilaterally. Sensory testing reveals a nondermatomal patchy sensory level below the umbilicus bilaterally. Strength and sensation are preserved in the upper extremity. Straight leg raising provokes severe low back pain. IMAGING STUDIES: MRIs of the thoracic and lumbar spine were reviewed. In the lumbar region, there is chronic grade 1 degenerative spondylolisthesis with moderate central and moderately severe bilateral lateral recess stenosis. In the thoracic spine, she has a solid enhancing intradural dural-based lesion at T9-T10, which markedly compresses and displaces the cord. The lesion is located anterolateral to the cord on the right side. IMPRESSION: 1. Large T9-10 intradural extramedullary tumor consistent with meningioma with cord compression and bilateral spastic weakness of the lower extremities. 2. Chronic L4-L5 grade 1 degenerative spondylolisthesis with moderately severe spinal stenosis. RECOMMENDATIONS: 1. Start Decadron. The patient will be transferred to [facility] in preparation for surgery on her thoracic intradural tumor tomorrow. The rationale for proceeding with surgery and the risks and benefits of surgery including possibility of paralysis, weakness, urinary incontinence, and residual recurrent tumor and the possibility of CSF leakage were explained to the patient and her . She understands that she may continue to have some amount of pain after this surgery because of her L4-L5 problem, which will have to be addressed at a later date. She gives informed consent to the transfer and to the surgery. Wesley Martinez MD PP/MODL /[id number]
== END 2018-12-28 20:43 | disposition short-term general hospital (02) | DRG 55 ==
LOC: ER 07:35 → ERHOLD 10:23 → INTOOBSV 11:20 → OBSVTOIN 11:20 → MED/SURG 11:41 → OBSVTOIN 12-24 12:30
PROVIDERS: ADMIT Family Medicine; ATTEND Family Medicine
DX: D32.1 Benign neoplasm of spinal meninges (principal); G95.29 Other cord compression; N17.9 Acute kidney failure, unspecified; E22.2 Syndrome of inappropriate secretion of antidiuretic hormone; N39.0 Urinary tract infection, site not specified; M43.16 Spondylolisthesis, lumbar region; M48.061 Spinal stenosis, lumbar region without neurogenic claudication; E78.5 Hyperlipidemia, unspecified; R60.0 Localized edema; T38.0X5A Adverse effect of glucocorticoids and synthetic analogues, initial encounter; Z88.5 Allergy status to narcotic agent; Z88.2 Allergy status to sulfonamides; Z85.820 Personal history of malignant melanoma of skin; Z87.891 Personal history of nicotine dependence; M10.9 Gout, unspecified; M19.90 Unspecified osteoarthritis, unspecified site; Z80.8 Family history of malignant neoplasm of other organs or systems; Z82.3 Family history of stroke; Z80.42 Family history of malignant neoplasm of prostate; G89.29 Other chronic pain; I15.8 Other secondary hypertension
CPT/HCPCS: 36415; 71045; 71260; 72148; 72157; 74177; 80048; 80053; 80061; 81001; 82550; 82553; 83735; 83880; 84443; 84484; 85025; 85379; 85610; 85730; 87086; 93005; 93306; 93970; 97139; 99284; G0378; J0360; J1100; J1170; J1650; J2250; J2405; J2543; J2550; J7030; J7040; J7050; Q9967

== ENCOUNTER → 2019-04-21 | Outpatient (CLI) | payer MEDICARE ==
[~2019-04-21] MED LIST changes: +DIATRIZOATE MEGL/DIATRIZOA SOD 30 ML BTL PO ONE
[2019-04-21 15:26] LABS: BLOOD UREA NITROGEN 8 mg/dL (7-26); BUN/CREATININE RATIO 10 (6-25); CREATININE, SERUM 0.78 mg/dL (0.57-1.11); EST GLOMERULAR FILTRATION RATE > 60 ML/MIN (60-)
--- NOTE | 2019-04-21 17:10 | Diagnostic Imaging Report ---
EXAM: CT Abdomen and Pelvis WITH intravenous contrast INDICATION: Left lower quadrant abdominal pain COMPARISON: None. TECHNIQUE: Abdomen and pelvis were scanned utilizing a multidetector helical scanner from the lung base to the pubic symphysis after administration of IV contrast. Coronal and sagittal reformations were obtained. Routine protocol was performed. Scan was performed during portal venous phase. IV CONTRAST: 100mL of Isovue 370 ORAL CONTRAST: Gastrografin RADIATION DOSE: Total DLP: 491 mGy*cm Dose modulation, iterative reconstruction, and/or weight based adjustment of the mA/kV was utilized to reduce the radiation dose to as low as reasonably achievable. FINDINGS: LOWER THORAX: Normal. HEPATOBILIARY: Diffuse hepatic steatosis. Subcentimeter calcified granulomas throughout the liver. No focal liver lesion. No biliary ductal dilation. Unremarkable gallbladder. SPLEEN: Subcentimeter calcified granulomas in the spleen. No splenomegaly. PANCREAS: No focal masses or ductal dilatation. ADRENALS: No adrenal nodules. KIDNEYS/URETERS: No hydronephrosis, stones, or solid mass lesions. PELVIC ORGANS/BLADDER: Status post hysterectomy. PERITONEUM / RETROPERITONEUM: No free air or fluid. LYMPH NODES: No lymphadenopathy. VESSELS: Moderate after cirrhotic calcifications of the nonaneurysmal abdominal aorta and major branches. GI TRACT: Severe sigmoid and distal descending colon diverticulosis. No CT evidence of diverticulitis. No abnormal bowel thickening. No bowel obstruction. Normal appendix. BONES AND SOFT TISSUES: No acute osseous injury. No suspicious lytic or blastic lesions. Multilevel degenerative changes. Grade 1 anterolisthesis at L4-5. Partially visualized postoperative findings of lower thoracic posterior decompression. IMPRESSION: Severe diverticulosis without CT evidence of diverticulitis. Diffuse hepatic steatosis. Signed by: Tavo Romo MD on 04/21/2019 5:08 PM
== END ==
LOC: CT 14:29
PROVIDERS: ATTEND Family Medicine
DX: R10.32 Left lower quadrant pain (principal)
CPT/HCPCS: 36415; 74177; 82565; 84520

== ENCOUNTER 2022-04-11 19:48 | Observation (INO) | payer MEDICARE ==
[~2022-04-11] VITALS: Ht 152.4 cm; Wt 73.6 kg
[~2022-04-11 19:48] MED LIST changes: -DIATRIZOATE MEGL/DIATRIZOA SOD 30 ML BTL PO ONE
[2022-04-11] MEDS ORDERED: HYDRALAZINE HCL 20 MG/ML VIAL IV STA (20:06)
[2022-04-11 20:25] LABS: BASOPHILS # (AUTO) 0.1 (0.0-0.1); BASOPHILS % 0.6 % (0.0-1.0); EOSINOPHILS # (AUTO) 0.1 (0.0-0.4); EOSINOPHILS % 0.8 % (0.0-6.0); HEMATOCRIT 42.4 % (34.2-44.1); HEMOGLOBIN 14.4 g/dL (12.0-16.0); LYMPHOCYTES # (AUTO) 1.2 (1.0-3.2); LYMPHOCYTES % 11.3 % (18.0-39.1); MEAN CORPUSCULAR HEMOGLOBIN 34.2 pg (28-32); MEAN CORPUSCULAR VOLUME 100.7 fL (81-99); MONOCYTES # (AUTO) 0.9 (0.2-0.8); MONOCYTES % 8.7 % (4.4-11.3); NEUTROPHILS % 78.2 % (38.7-80.0); PLATELET COUNT 278 x10e3/uL (140-360); RED BLOOD COUNT 4.21 x10e6/uL (3.6-5.1); RED CELL DISTRIBUTION WIDTH 12.9 % (11.7-14.4)
[2022-04-11 20:42] LABS: ALBUMIN 4.1 g/dL (3.5-5.0); ALBUMIN/GLOBULIN RATIO 1.5 (0.8-2.0); ANION GAP 15.6 mmol/L (8-16); CALCIUM 9.4 mg/dL (8.4-10.2); CREATININE, SERUM 0.81 mg/dL (0.57-1.11); POTASSIUM 4.6 mmol/L (3.5-5.1)
[2022-04-11] MEDS ORDERED: ACETAMINOPHEN 325 MG TAB PO STA (20:45)
[2022-04-11 20:48] LABS: CREATINE KINASE MB 1.7 ng/mL (0-5.0)
[2022-04-11] MEDS ORDERED: ONDANSETRON HCL INJ 2MG/ML 2ML 2 MG/ML VIAL ONE (21:20)
[2022-04-11] MEDS ORDERED: Morphine 4mg INJECTION 4 MG/ML INJ ONE (21:20)
[2022-04-11] MEDS ORDERED: IOPAMIDOL 370 MG/ML 100 ML INFUS..BTL INJ ONE (21:23)
[2022-04-11] MEDS ORDERED: ONDANSETRON HCL INJ 2MG/ML 2ML 2 MG/ML VIAL IV PRN (23:15)
[2022-04-11] MEDS ORDERED: Morphine 4mg INJECTION 4 MG/ML INJ IV PRN (23:15)
[2022-04-11] MEDS ORDERED: SODIUM CHLORIDE 0.9% 1000ML 1,000 ML IV SCH (23:15)
[2022-04-12] MEDS ORDERED: CLONIDINE HCL 0.1 MG TAB PO PRN (04:45)
[2022-04-12 08:17] LABS: BASOPHILS % 0.5 % (0.0-1.0); EOSINOPHILS # (AUTO) 0.1 (0.0-0.4); EOSINOPHILS % 1.4 % (0.0-6.0); HEMATOCRIT 41.3 % (34.2-44.1); LYMPHOCYTES # (AUTO) 1.1 (1.0-3.2); LYMPHOCYTES % 14.2 % (18.0-39.1); MEAN CORPUSCULAR HEMOGLOBIN 34.1 pg (28-32); MEAN CORPUSCULAR HGB CONC 33.9 g/dL (31-35); MEAN CORPUSCULAR VOLUME 100.5 fL (81-99); MONOCYTES # (AUTO) 0.7 (0.2-0.8); MONOCYTES % 9.2 % (4.4-11.3); NEUTROPHILS # (AUTO) 5.9 (2.1-6.9); NEUTROPHILS % 74.4 % (38.7-80.0); PLATELET COUNT 288 x10e3/uL (140-360); RED BLOOD COUNT 4.11 x10e6/uL (3.6-5.1); RED CELL DISTRIBUTION WIDTH 13.1 % (11.7-14.4)
[2022-04-12] MEDS ORDERED: ATORVASTATIN CA20 MG PO (08:27)
[2022-04-12] MEDS ORDERED: ALLOPURINOL300 MG PO (08:28)
[2022-04-12] MEDS ORDERED: HYDRALAZINE HCL50 MG PO (08:28)
[2022-04-12] MEDS ORDERED: METOPROLOL TARTRATE 50 MG TAB PO SCH (09:00)
[2022-04-12] MEDS: HYDRALAZINE HCL 25 MG TAB PO SCH ×3 (10:00→20:54)
[2022-04-12] MEDS: METOPROLOL SUCCINATE 50 MG TAB XL PO SCH (10:00)
[2022-04-12 10:36] LABS: ALBUMIN/GLOBULIN RATIO 1.4 (0.8-2.0); ANION GAP 13.3 mmol/L (8-16); CALCIUM 9.5 mg/dL (8.4-10.2); CREATININE, SERUM 0.73 mg/dL (0.57-1.11); POTASSIUM 4.3 mmol/L (3.5-5.1)
[2022-04-12 11:12] LABS: CREATINE KINASE MB 1.6 ng/mL (0-5.0)
[2022-04-12] MEDS: ALLOPURINOL 300 MG TAB PO SCH (12:01)
[2022-04-12 15:53] LABS: CREATINE KINASE MB 1.5 ng/mL (0-5.0)
[2022-04-12] MEDS ORDERED: QUINAPRIL HCL 10 MG TAB PO SCH (21:00)
[2022-04-12] MEDS ORDERED: ATORVASTATIN 20 MG TAB PO SCH (21:00)
[2022-04-12 22:29] VITALS: BP 166/78
[2022-04-12 22:33] VITALS: BP 166/68
[2022-04-12 23:02] VITALS: BP 166/68
[2022-04-13 00:15] LABS: CREATINE KINASE MB 1.8 ng/mL (0-5.0)
[2022-04-13 02:11] VITALS: BP 137/49
[2022-04-13 06:37] VITALS: BP 154/65
[2022-04-13 08:21] VITALS: BP 153/75
[2022-04-13] MEDS: METOPROLOL SUCCINATE 50 MG TAB XL PO SCH (08:39)
[2022-04-13] MEDS: ALLOPURINOL 300 MG TAB PO SCH (08:39)
[2022-04-13] MEDS: HYDRALAZINE HCL 25 MG TAB PO SCH (08:40)
== END 2022-04-13 09:04 | disposition home or self-care (01) ==
LOC: ER 19:57 → ERHOLD 23:08 → MED/SURG3 04-12 21:53
PROVIDERS: ADMIT Family Medicine; ATTEND Family Medicine
DX: U07.1 COVID-19 (principal); I16.0 Hypertensive urgency; K80.20 Calculus of gallbladder without cholecystitis without obstruction; R07.9 Chest pain, unspecified; M10.9 Gout, unspecified; E78.00 Pure hypercholesterolemia, unspecified; G89.29 Other chronic pain; M54.9 Dorsalgia, unspecified
CPT/HCPCS: 36415 ×2; 70450; 71045; 71260; 80053 ×2; 82550 ×2; 82553 ×2; 83690; 83880; 84484 ×2; 85025 ×2; 85379; 93005; 94799; 99284; G0378 ×3; J0360; J2270; J2405; J7030; Q9967; U0002